=== PATIENT | male | born 1965 | race Caucasian/White ===

== ENCOUNTER 2023-05-27 07:39 | Day surgery (SDC) | payer OTHER ==
[2023-05-27 08:12] LABS: BASO % 1.2 % (0-2.0); EOS % 6.9 % (0-4.5); HEMATOCRIT 30.8 % (35.4-49); LYMPH % 22.7 % (8-40); MCH 23.8 pg (25.7-33.7); MCHC 32.6 g/dl (32.0-35.9); MEAN PLT VOLUME 7.8 fl (7.5-11.1); MONO % 10.2 % (3.8-10.2); PLATELET COUNT 449 10^3/uL (134-434); RBC 4.22 M/mm3 (4.00-5.60); RDW 16.6 % (11.9-15.9); WHITE BLOOD COUNT 7.1 K/mm3 (4.0-10.0)
[2023-05-27 08:15] LABS: POTASSIUM 3.9 mmol/L (3.5-5.1)
[2023-05-27 08:16] LABS: CALCIUM 8.3 mg/dL (8.5-10.1)
[2023-05-27 08:17] LABS: BLOOD UREA NITROGEN 14.6 mg/dL (7-18)
[2023-05-27 08:18] LABS: ALBUMIN 3.2 g/dl (3.4-5.0)
[2023-05-27 08:20] LABS: BILIRUBIN,DIRECT 0.1 mg/dL (0.0-0.2); CREATININE 0.8 mg/dL (0.55-1.3)
[2023-05-27 08:23] LABS: BILIRUBIN,TOTAL 0.3 mg/dL (0.2-1); TOT PROT 6.6 g/dl (6.4-8.2)
[2023-05-27] MEDS ORDERED: SODIUM CHLORIDE 250 ML IV ONE (09:00)
[2023-05-27] MEDS ORDERED: PALONOSETRON HCL 0.25 MG/5 ML VIAL IVPUSH ONE (09:30)
[2023-05-27] MEDS ORDERED: DEXAMETHASONE SODIUM PHOSPHATE 10 MG in SODIUM CHLORIDE 50 ML IVPB ONE (09:30)
[2023-05-27] MEDS ORDERED: LEUCOVORIN CALCIUM IVPB ONE (10:00)
[2023-05-27] MEDS ORDERED: WATER IVPB ONE (10:00)
[2023-05-27] MEDS ORDERED: DEXTROSE 5% IVPB ONE (10:00)
[2023-05-27] MEDS ORDERED: FLUOROURACIL 1,000 MG/20 ML VIAL IVPUSH ONE (12:00)
[2023-05-27] MEDS ORDERED: FLUOROURACIL 3,500 MG in SODIUM CHLORIDE 22 ML CP ONE (12:15)
[2023-05-27 15:09] VITALS: RESP 20
[2023-05-27] MEDS ORDERED: PORTA CATH FLUSH 10 ML IVPUSH PRN (15:58)
[2023-05-27 15:59] VITALS: BP 116/71; PULSE 86; TEMP 98.5
== END 2023-05-27 13:30 | disposition home or self-care (01) ==
LOC: JONCCHEMO 07:39 → J7W 07:40 → JONCCHEMO 13:30
PROVIDERS: ATTEND Internal Medicine Hematology & Oncology
DX: Z51.11 Encounter for antineoplastic chemotherapy (principal); C15.5 Malignant neoplasm of lower third of esophagus
CPT/HCPCS: 36415; 80048; 80076; 85025; 96367; 96375; 96411; 96413; G0498; J2469; J9263

== ENCOUNTER 2023-05-29 10:35 | Day surgery (SDC) | payer OTHER ==
[2023-05-29 15:54] VITALS: BP 104/73; PULSE 94; RESP 18; TEMP 97.6
[2023-05-29] MEDS ORDERED: PORTA CATH FLUSH 10 ML IVPUSH PRN (15:54)
== END 2023-05-29 11:10 | disposition home or self-care (01) ==
LOC: J7W 10:35 → JONCCHEMO 10:35
PROVIDERS: ATTEND Internal Medicine Hematology & Oncology
DX: Z53.8 Procedure and treatment not carried out for other reasons (principal)

== ENCOUNTER 2023-06-10 07:54 | Day surgery (SDC) | payer OTHER ==
[2023-06-10 08:19] LABS: HEMATOCRIT 27.9 % (35.4-49); HEMOGLOBIN 9.2 GM/dL (11.7-16.9); MCH 23.9 pg (25.7-33.7); MCHC 32.9 g/dl (32.0-35.9); MEAN CELL VOLUME 72.6 fl (80-96); MEAN PLT VOLUME 7.7 fl (7.5-11.1); PLATELET COUNT 305 10^3/uL (134-434); RBC 3.85 M/mm3 (4.00-5.60); RDW 16.9 % (11.9-15.9); WHITE BLOOD COUNT 4.1 K/mm3 (4.0-10.0)
[2023-06-10] MEDS ORDERED: SODIUM CHLORIDE 250 ML IV ONE (09:00)
[2023-06-10 09:05] LABS: POTASSIUM 3.3 mmol/L (3.5-5.1)
[2023-06-10 09:07] LABS: CALCIUM 7.8 mg/dL (8.5-10.1)
[2023-06-10 09:08] LABS: ALBUMIN 2.8 g/dl (3.4-5.0); BLOOD UREA NITROGEN 11.2 mg/dL (7-18)
[2023-06-10 09:10] LABS: ANISOCYTOSIS 1+
[2023-06-10 09:11] LABS: BILIRUBIN,DIRECT 0.1 mg/dL (0.0-0.2); CREATININE 0.7 mg/dL (0.55-1.3)
[2023-06-10 09:12] LABS: BILIRUBIN,TOTAL 0.5 mg/dL (0.2-1); TOT PROT 5.9 g/dl (6.4-8.2)
[2023-06-10] MEDS ORDERED: PALONOSETRON HCL 0.25 MG/5 ML VIAL IVPUSH ONE (09:30)
[2023-06-10] MEDS ORDERED: DEXAMETHASONE SODIUM PHOSPHATE 10 MG in SODIUM CHLORIDE 50 ML IVPB ONE (09:30)
[2023-06-10] MEDS ORDERED: LEUCOVORIN IVPB ONE (10:00)
[2023-06-10] MEDS ORDERED: WATER IVPB ONE (10:00)
[2023-06-10] MEDS ORDERED: POTASSIUM CHLORIDE TABS 20 MEQ TABLET.ER (FP) PO ONE (10:00)
[2023-06-10] MEDS ORDERED: DEXTROSE 5% IVPB ONE (10:00)
[2023-06-10] MEDS ORDERED: FLUOROURACIL 1,000 MG/20 ML VIAL IVPUSH ONE (12:00)
[2023-06-10] MEDS ORDERED: FLUOROURACIL 3,500 MG in SODIUM CHLORIDE 22 ML CP ONE (12:15)
[2023-06-10 15:35] VITALS: BP 91/67; PULSE 89; RESP 18; TEMP 97.3
== END 2023-06-10 13:45 | disposition home or self-care (01) ==
LOC: JONCCHEMO 07:54 → J7W 07:55 → JONCCHEMO 13:45
PROVIDERS: ATTEND Internal Medicine Hematology & Oncology
DX: Z51.11 Encounter for antineoplastic chemotherapy (principal); C15.8 Malignant neoplasm of overlapping sites of esophagus
CPT/HCPCS: 36415; 80048; 80076; 85025; 96366; 96367; 96375; 96411; 96413; 96415; G0498; J2469; J9263

== ENCOUNTER 2023-06-12 11:40 | Day surgery (SDC) | payer OTHER ==
[2023-06-12 17:15] VITALS: BP 109/77; PULSE 87; RESP 20; TEMP 97.7
[2023-06-12] MEDS ORDERED: PORTA CATH FLUSH 10 ML IVPUSH PRN (17:15)
== END 2023-06-12 11:55 | disposition home or self-care (01) ==
LOC: JONCCHEMO 11:40 → J7W 11:41 → JONCCHEMO 11:55
PROVIDERS: ATTEND Internal Medicine Hematology & Oncology
DX: Z53.8 Procedure and treatment not carried out for other reasons (principal)

== ENCOUNTER 2023-07-01 08:01 | Day surgery (SDC) | payer OTHER ==
[~2023-07-01 08:01] MED LIST: DEXAMETHASONE SODIUM PHOSPHATE 10 MG in SODIUM CHLORIDE 50 ML IVPB ONE; DEXTROSE 5% IVPB ONE; FLUOROURACIL 1,000 MG/20 ML VIAL IVPUSH ONE; FLUOROURACIL 3,500 MG in SODIUM CHLORIDE 22 ML CP ONE; LEUCOVORIN CALCIUM IVPB ONE; PALONOSETRON HCL 0.25 MG/5 ML VIAL IVPUSH ONE; SODIUM CHLORIDE 250 ML IV ONE; WATER IVPB ONE
[2023-07-01 08:18] LABS: BASO % 1.1 % (0-2.0); EOS % 4.3 % (0-4.5); HEMATOCRIT 29.6 % (35.4-49); HEMOGLOBIN 9.2 GM/dL (11.7-16.9); MCHC 31.2 g/dl (32.0-35.9); MEAN CELL VOLUME 73.9 fl (80-96); MEAN PLT VOLUME 7.7 fl (7.5-11.1); NEUT % 64.6 % (42.8-82.8); PLATELET COUNT 392 10^3/uL (134-434)
[2023-07-01 08:46] LABS: POTASSIUM 3.5 mmol/L (3.5-5.1)
[2023-07-01 08:48] LABS: ALBUMIN 2.8 g/dl (3.4-5.0); BLOOD UREA NITROGEN 18.6 mg/dL (7-18); CALCIUM 8.3 mg/dL (8.5-10.1)
[2023-07-01 08:51] LABS: BILIRUBIN,DIRECT 0.1 mg/dL (0.0-0.2); CREATININE 0.7 mg/dL (0.55-1.3)
[2023-07-01 08:53] LABS: BILIRUBIN,TOTAL 0.3 mg/dL (0.2-1)
[2023-07-01] MEDS ORDERED: SODIUM CHLORIDE 250 ML IV ONE (09:00)
[2023-07-01 09:26] LABS: ANISOCYTOSIS 3+; MACROCYTOSIS 0; OVALOCYTE 2+
[2023-07-01] MEDS ORDERED: DEXAMETHASONE SODIUM PHOSPHATE 10 MG in SODIUM CHLORIDE 50 ML IVPB ONE (09:30)
[2023-07-01] MEDS ORDERED: PALONOSETRON HCL 0.25 MG/5 ML VIAL IVPUSH ONE (09:30)
[2023-07-01] MEDS ORDERED: DEXTROSE 5% IVPB ONE (10:00)
[2023-07-01] MEDS ORDERED: LEUCOVORIN IVPB ONE (10:00)
[2023-07-01] MEDS ORDERED: WATER IVPB ONE (10:00)
[2023-07-01] MEDS ORDERED: FLUOROURACIL 1,000 MG/20 ML VIAL IVPUSH ONE (12:00)
[2023-07-01] MEDS ORDERED: FLUOROURACIL 3,500 MG in SODIUM CHLORIDE 22 ML CP ONE (12:15)
[2023-07-01 15:05] VITALS: BP 114/79; PULSE 68; RESP 20; TEMP 97.4
== END 2023-07-01 13:00 | disposition home or self-care (01) ==
LOC: JONCCHEMO 08:01 → J7W 08:02 → JONCCHEMO 13:00
PROVIDERS: ATTEND Internal Medicine Hematology & Oncology
DX: Z51.11 Encounter for antineoplastic chemotherapy (principal); C15.8 Malignant neoplasm of overlapping sites of esophagus
CPT/HCPCS: 36415; 80048; 80076; 85025; 96366; 96367; 96375; 96411; 96413; 96415; G0498; J2469; J9263

== ENCOUNTER 2023-07-03 11:49 | Day surgery (SDC) | payer OTHER ==
[2023-07-03] MEDS ORDERED: PORTA CATH FLUSH 10 ML IVPUSH PRN (11:56)
[2023-07-03 13:50] VITALS: BP 110/73; PULSE 91; RESP 18; TEMP 98
== END 2023-07-03 12:00 | disposition home or self-care (01) ==
LOC: J7W 11:49 → JONCCHEMO 11:49
PROVIDERS: ATTEND Internal Medicine Hematology & Oncology
DX: Z53.8 Procedure and treatment not carried out for other reasons (principal)

== ENCOUNTER 2023-07-15 07:46 | Day surgery (SDC) | payer OTHER ==
[2023-07-15 08:22] LABS: HEMOGLOBIN 9.6 GM/dL (11.7-16.9); MCH 23.9 pg (25.7-33.7); MCHC 32.1 g/dl (32.0-35.9); MEAN CELL VOLUME 74.4 fl (80-96); MEAN PLT VOLUME 7.6 fl (7.5-11.1); PLATELET COUNT 261 10^3/uL (134-434); RBC 4.04 M/mm3 (4.00-5.60); RDW 20.9 % (11.9-15.9); WHITE BLOOD COUNT 3.8 K/mm3 (4.0-10.0)
[2023-07-15] MEDS ORDERED: SODIUM CHLORIDE 250 ML IV ONE (08:30)
[2023-07-15 08:56] LABS: ALBUMIN 3.1 g/dl (3.4-5.0); BILIRUBIN,DIRECT 0.1 mg/dL (0.0-0.2); BILIRUBIN,TOTAL 0.4 mg/dL (0.2-1); BLOOD UREA NITROGEN 13.4 mg/dL (7-18); CALCIUM 8.8 mg/dL (8.5-10.1); CREATININE 0.7 mg/dL (0.55-1.3); POTASSIUM 3.5 mmol/L (3.5-5.1)
[2023-07-15] MEDS ORDERED: DEXAMETHASONE SODIUM PHOSPHATE 10 MG in SODIUM CHLORIDE 50 ML IVPB ONE (10:00)
[2023-07-15] MEDS ORDERED: PALONOSETRON HCL 0.25 MG/5 ML VIAL IVPUSH ONE (10:00)
[2023-07-15 10:27] LABS: ANISOCYTOSIS 2+; MACROCYTOSIS 0; OVALOCYTE 2+; TEAR DROP CELLS 2+
[2023-07-15] MEDS ORDERED: LEUCOVORIN IVPB ONE (10:30)
[2023-07-15] MEDS ORDERED: WATER IVPB ONE (10:30)
[2023-07-15] MEDS ORDERED: DEXTROSE 5% IVPB ONE (10:30)
[2023-07-15] MEDS ORDERED: FLUOROURACIL 1,000 MG/20 ML VIAL IVPUSH ONE (12:30)
[2023-07-15] MEDS ORDERED: FLUOROURACIL 3,500 MG in SODIUM CHLORIDE 22 ML CP ONE (12:30)
[2023-07-15 14:04] VITALS: BP 105/81; PULSE 78; RESP 18; TEMP 97.8
[2023-07-15] MEDS ORDERED: PORTA CATH FLUSH 10 ML IVPUSH PRN (14:04)
== END 2023-07-15 13:57 | disposition home or self-care (01) ==
LOC: JONCCHEMO 07:46 → J7W 07:47 → JONCCHEMO 13:57
PROVIDERS: ATTEND Internal Medicine Hematology & Oncology
DX: Z51.11 Encounter for antineoplastic chemotherapy (principal); C15.8 Malignant neoplasm of overlapping sites of esophagus
CPT/HCPCS: 36415; 80048; 80076; 85025; 96366; 96367; 96375; 96411; 96413; 96415; 96417; G0498; J2469; J9263

== ENCOUNTER 2023-07-17 11:46 | Day surgery (SDC) | payer OTHER ==
[2023-07-17 17:43] VITALS: BP 107/66; PULSE 81; RESP 18; TEMP 98.1
[2023-07-17] MEDS ORDERED: PORTA CATH FLUSH 10 ML IVPUSH PRN (17:44)
== END 2023-07-17 13:05 | disposition home or self-care (01) ==
LOC: JONCCHEMO 11:46 → J7W 11:47 → JONCCHEMO 13:05
PROVIDERS: ATTEND Internal Medicine Hematology & Oncology
DX: Z53.8 Procedure and treatment not carried out for other reasons (principal)

== ENCOUNTER 2023-07-30 07:53 | Day surgery (SDC) | payer OTHER ==
[2023-07-30 08:06] LABS: HEMATOCRIT 34.9 % (35.4-49); MCH 24.6 pg (25.7-33.7); MCHC 31.6 g/dl (32.0-35.9); MEAN CELL VOLUME 77.9 fl (80-96); MEAN PLT VOLUME 7.3 fl (7.5-11.1); PLATELET COUNT 265 10^3/uL (134-434); RBC 4.47 M/mm3 (4.00-5.60); RDW 25.5 % (11.9-15.9); WHITE BLOOD COUNT 3.2 K/mm3 (4.0-10.0)
[2023-07-30 08:23] LABS: POTASSIUM 3.4 mmol/L (3.5-5.1)
[2023-07-30 08:26] LABS: CALCIUM 8.7 mg/dL (8.5-10.1)
[2023-07-30 08:27] LABS: ALBUMIN 3.1 g/dl (3.4-5.0)
[2023-07-30 08:29] LABS: BILIRUBIN,DIRECT 0.1 mg/dL (0.0-0.2); CREATININE 0.9 mg/dL (0.55-1.3)
[2023-07-30 08:30] LABS: BILIRUBIN,TOTAL 0.4 mg/dL (0.2-1); TOT PROT 6.2 g/dl (6.4-8.2)
[2023-07-30 08:43] LABS: ANISOCYTOSIS 3+; MACROCYTOSIS 0
[2023-07-30] MEDS ORDERED: SODIUM CHLORIDE 250 ML IV ONE (09:00)
[2023-07-30] MEDS ORDERED: DEXAMETHASONE SODIUM PHOSPHATE 10 MG in SODIUM CHLORIDE 50 ML IVPB ONE (09:30)
[2023-07-30] MEDS ORDERED: PALONOSETRON HCL 0.25 MG/5 ML VIAL IVPUSH ONE (09:30)
[2023-07-30 09:34] VITALS: RESP 18; TEMP 97.7
[2023-07-30] MEDS ORDERED: PORTA CATH FLUSH 10 ML IVPUSH PRN (09:35)
[2023-07-30 09:36] VITALS: BP 121/81; PULSE 84
[2023-07-30] MEDS ORDERED: WATER IVPB ONE (10:00)
[2023-07-30] MEDS ORDERED: DEXTROSE 5% IVPB ONE (10:00)
[2023-07-30] MEDS ORDERED: LEUCOVORIN IVPB ONE (10:00)
[2023-07-30] MEDS ORDERED: FLUOROURACIL 1,000 MG/20 ML VIAL IVPUSH ONE (12:00)
[2023-07-30] MEDS ORDERED: FLUOROURACIL 3,500 MG in SODIUM CHLORIDE 22 ML CP ONE (12:15)
== END 2023-07-30 09:30 | disposition home or self-care (01) ==
LOC: JONCCHEMO 07:53 → J7W 07:55 → JONCCHEMO 09:30
PROVIDERS: ATTEND Internal Medicine Hematology & Oncology
PROC: 3E0437Z Introduction of Electrolytic and Water Balance Substance into Central Vein, Percutaneous Approach (ICD-10-PCS; principal; 2023-07-30)
DX: Z51.11 Encounter for antineoplastic chemotherapy (principal); C15.8 Malignant neoplasm of overlapping sites of esophagus; Z53.8 Procedure and treatment not carried out for other reasons; D70.9 Neutropenia, unspecified
CPT/HCPCS: 36415; 80048; 80076; 85025; 96360

== ENCOUNTER 2023-08-06 07:40 | Day surgery (SDC) | payer OTHER ==
[2023-08-06 08:59] LABS: HEMATOCRIT 37.4 % (35.4-49); HEMOGLOBIN 11.8 GM/dL (11.7-16.9); MCHC 31.4 g/dl (32.0-35.9); MEAN CELL VOLUME 79.6 fl (80-96); MEAN PLT VOLUME 8.3 fl (7.5-11.1); PLATELET COUNT 305 10^3/uL (134-434); WHITE BLOOD COUNT 8.7 K/mm3 (4.0-10.0)
[2023-08-06] MEDS ORDERED: SODIUM CHLORIDE 250 ML IV ONE (09:00)
[2023-08-06] MEDS ORDERED: PALONOSETRON HCL 0.25 MG/5 ML VIAL IVPUSH ONE (09:30)
[2023-08-06] MEDS ORDERED: DEXAMETHASONE SODIUM PHOSPHATE 10 MG in SODIUM CHLORIDE 50 ML IVPB ONE (09:30)
[2023-08-06 09:49] LABS: POTASSIUM 4.1 mmol/L (3.5-5.1)
[2023-08-06 09:51] LABS: ALBUMIN 3.2 g/dl (3.4-5.0); BLOOD UREA NITROGEN 11.5 mg/dL (7-18); CALCIUM 9.4 mg/dL (8.5-10.1)
[2023-08-06 09:54] LABS: BILIRUBIN,DIRECT 0.1 mg/dL (0.0-0.2); CREATININE 0.8 mg/dL (0.55-1.3)
[2023-08-06 09:56] LABS: BILIRUBIN,TOTAL 0.4 mg/dL (0.2-1); TOT PROT 6.4 g/dl (6.4-8.2)
[2023-08-06] MEDS ORDERED: WATER IVPB ONE (10:00)
[2023-08-06] MEDS ORDERED: DEXTROSE 5% IVPB ONE (10:00)
[2023-08-06] MEDS ORDERED: LEUCOVORIN IVPB ONE (10:00)
[2023-08-06 10:16] LABS: ANISOCYTOSIS 2+; MACROCYTOSIS 0
[2023-08-06] MEDS ORDERED: FLUOROURACIL 3,500 MG in SODIUM CHLORIDE 22 ML CP ONE (12:00)
[2023-08-06] MEDS ORDERED: FLUOROURACIL 1,000 MG/20 ML VIAL IVPUSH ONE (12:00)
[2023-08-06 16:00] VITALS: BP 121/88; PULSE 78; RESP 18; TEMP 97.8
== END 2023-08-06 14:45 | disposition home or self-care (01) ==
LOC: JONCCHEMO 07:40 → J7W 07:43 → JONCCHEMO 14:45
PROVIDERS: ATTEND Internal Medicine Hematology & Oncology
DX: Z51.11 Encounter for antineoplastic chemotherapy (principal); C15.8 Malignant neoplasm of overlapping sites of esophagus
CPT/HCPCS: 36415; 80048; 80076; 85025; 96366; 96367; 96375; 96411; 96413; 96415; G0498; J2469; J9263

== ENCOUNTER 2023-08-08 11:10 | Day surgery (SDC) | payer OTHER ==
[~2023-08-08 11:10] MED LIST changes: -DEXAMETHASONE SODIUM PHOSPHATE 10 MG in SODIUM CHLORIDE 50 ML IVPB ONE; -DEXTROSE 5% IVPB ONE; -FLUOROURACIL 1,000 MG/20 ML VIAL IVPUSH ONE; -FLUOROURACIL 3,500 MG in SODIUM CHLORIDE 22 ML CP ONE; -LEUCOVORIN CALCIUM IVPB ONE; -PALONOSETRON HCL 0.25 MG/5 ML VIAL IVPUSH ONE; +PEGFILGRASTIM-CBQV (UDENYCA) 6 MG/0.6 ML SYRINGE SQ ONE; -SODIUM CHLORIDE 250 ML IV ONE; -WATER IVPB ONE
[2023-08-08 13:02] VITALS: RESP 18; TEMP 98.7
[2023-08-08 13:12] VITALS: BP 123/84; PULSE 80
[2023-08-08] MEDS ORDERED: PORTA CATH FLUSH 10 ML IVPUSH PRN (13:12)
== END 2023-08-08 13:30 | disposition home or self-care (01) ==
LOC: J7W 11:10 → JONCCHEMO 11:10
PROVIDERS: ATTEND Internal Medicine Hematology & Oncology
DX: Z53.8 Procedure and treatment not carried out for other reasons (principal)

== ENCOUNTER 2023-08-09 11:07 | Day surgery (SDC) | payer OTHER ==
[2023-08-09] MEDS: PEGFILGRASTIM-CBQV (UDENYCA) 6 MG/0.6 ML SYRINGE SQ ONE (11:23)
[2023-08-09 15:52] VITALS: BP 126/79; PULSE 89; RESP 18; TEMP 97.4
== END 2023-08-09 12:00 | disposition home or self-care (01) ==
LOC: JONCCHEMO 11:07 → J7W 11:08 → JONCCHEMO 12:00
PROVIDERS: ATTEND Internal Medicine Hematology & Oncology
PROC: 3E013GC Introduction of Other Therapeutic Substance into Subcutaneous Tissue, Percutaneous Approach (ICD-10-PCS; principal; 2023-08-09)
DX: C15.8 Malignant neoplasm of overlapping sites of esophagus (principal); Z76.89 Persons encountering health services in other specified circumstances
CPT/HCPCS: 96372; Q5111

== ENCOUNTER 2023-08-20 07:43 | Day surgery (SDC) | payer OTHER ==
[2023-08-20 08:31] LABS: HEMATOCRIT 36.5 % (35.4-49); HEMOGLOBIN 11.8 GM/dL (11.7-16.9); MCH 26.2 pg (25.7-33.7); MCHC 32.2 g/dl (32.0-35.9); MEAN CELL VOLUME 81.4 fl (80-96); MEAN PLT VOLUME 8.4 fl (7.5-11.1); PLATELET COUNT 179 10^3/uL (134-434); RBC 4.49 M/mm3 (4.00-5.60); RDW 25.7 % (11.9-15.9); WHITE BLOOD COUNT 9.6 K/mm3 (4.0-10.0)
[2023-08-20 08:42] LABS: POTASSIUM 4.1 mmol/L (3.5-5.1)
[2023-08-20 08:46] LABS: ALBUMIN 3.2 g/dl (3.4-5.0); BLOOD UREA NITROGEN 14.9 mg/dL (7-18)
[2023-08-20 08:48] LABS: BILIRUBIN,DIRECT 0.1 mg/dL (0.0-0.2); CREATININE 0.8 mg/dL (0.55-1.3)
[2023-08-20 08:50] LABS: BILIRUBIN,TOTAL 0.3 mg/dL (0.2-1); TOT PROT 6.5 g/dl (6.4-8.2)
[2023-08-20] MEDS ORDERED: SODIUM CHLORIDE 250 ML IV ONE (09:00)
[2023-08-20 09:29] LABS: ANISOCYTOSIS 2+; MACROCYTOSIS 0
[2023-08-20] MEDS ORDERED: PALONOSETRON HCL 0.25 MG/5 ML VIAL IVPUSH ONE (09:30)
[2023-08-20] MEDS ORDERED: DEXAMETHASONE SODIUM PHOSPHATE 10 MG in SODIUM CHLORIDE 50 ML IVPB ONE (09:30)
[2023-08-20] MEDS ORDERED: WATER IVPB ONE (10:00)
[2023-08-20] MEDS ORDERED: LEUCOVORIN IVPB ONE (10:00)
[2023-08-20] MEDS ORDERED: DEXTROSE 5% IVPB ONE (10:00)
[2023-08-20] MEDS ORDERED: FLUOROURACIL 1,000 MG/20 ML VIAL IVPUSH ONE (12:00)
[2023-08-20] MEDS ORDERED: FLUOROURACIL 3,500 MG in SODIUM CHLORIDE 22 ML CP ONE (12:15)
[2023-08-20 16:02] VITALS: BP 125/84; PULSE 79; RESP 20; TEMP 97.6
[2023-08-20] MEDS ORDERED: PORTA CATH FLUSH 10 ML IVPUSH PRN (16:02)
== END 2023-08-20 14:30 | disposition home or self-care (01) ==
LOC: JONCCHEMO 07:43 → J7W 07:44 → JONCCHEMO 14:30
PROVIDERS: ATTEND Internal Medicine Hematology & Oncology
DX: Z51.11 Encounter for antineoplastic chemotherapy (principal); C15.8 Malignant neoplasm of overlapping sites of esophagus
CPT/HCPCS: 36415; 80048; 80076; 85025; 96366; 96367; 96375; 96409; 96411; 96413; 96415; 96417; G0498; J2469; J9263

== ENCOUNTER 2023-08-22 11:45 | Day surgery (SDC) | payer OTHER ==
[2023-08-22] MEDS ORDERED: PORTA CATH FLUSH 10 ML IVPUSH PRN (19:22)
[2023-08-22 19:23] VITALS: BP 116/81; PULSE 85; RESP 20; TEMP 97.4
== END 2023-08-22 13:00 | disposition home or self-care (01) ==
LOC: JONCCHEMO 11:45 → J7W 12:13 → JONCCHEMO 13:00
PROVIDERS: ATTEND Internal Medicine Hematology & Oncology
DX: Z53.8 Procedure and treatment not carried out for other reasons (principal)

== ENCOUNTER 2023-08-23 12:30 | Day surgery (SDC) | payer OTHER ==
[2023-08-23 15:13] VITALS: BP 117/80; PULSE 80; RESP 20; TEMP 97.8
== END 2023-08-23 14:20 | disposition home or self-care (01) ==
LOC: J7W 12:30 → JONCCHEMO 12:30
PROVIDERS: ATTEND Internal Medicine Hematology & Oncology
PROC: 3E013GC Introduction of Other Therapeutic Substance into Subcutaneous Tissue, Percutaneous Approach (ICD-10-PCS; principal; 2023-08-23)
DX: Z51.11 Encounter for antineoplastic chemotherapy (principal); C15.8 Malignant neoplasm of overlapping sites of esophagus
CPT/HCPCS: 96372; Q5111

== ENCOUNTER 2023-09-03 07:50 | Day surgery (SDC) | payer OTHER ==
[~2023-09-03 07:50] MED LIST changes: -PEGFILGRASTIM-CBQV (UDENYCA) 6 MG/0.6 ML SYRINGE SQ ONE; +PORTA CATH FLUSH 10 ML IVPUSH PRN
[2023-09-03 08:14] LABS: MCH 26.7 pg (25.7-33.7); MCHC 32.5 g/dl (32.0-35.9); MEAN CELL VOLUME 82.1 fl (80-96); PLATELET COUNT 183 10^3/uL (134-434); RDW 24.4 % (11.9-15.9); WHITE BLOOD COUNT 12.4 K/mm3 (4.0-10.0)
[2023-09-03 08:28] LABS: POTASSIUM 3.7 mmol/L (3.5-5.1)
[2023-09-03 08:30] LABS: BLOOD UREA NITROGEN 15.4 mg/dL (7-18); CALCIUM 8.4 mg/dL (8.5-10.1)
[2023-09-03 08:31] LABS: ALBUMIN 3.4 g/dl (3.4-5.0)
[2023-09-03 08:33] LABS: BILIRUBIN,DIRECT 0.1 mg/dL (0.0-0.2); CREATININE 0.8 mg/dL (0.55-1.3)
[2023-09-03 08:35] LABS: TOT PROT 6.5 g/dl (6.4-8.2)
[2023-09-03] MEDS ORDERED: SODIUM CHLORIDE 250 ML IV ONE (09:30)
[2023-09-03] MEDS ORDERED: PALONOSETRON HCL 0.25 MG/5 ML VIAL IVPUSH ONE (10:00)
[2023-09-03] MEDS ORDERED: DEXAMETHASONE SODIUM PHOSPHATE 10 MG in SODIUM CHLORIDE 50 ML IVPB ONE (10:00)
[2023-09-03 10:14] LABS: ANISOCYTOSIS 2+; MACROCYTOSIS 0
[2023-09-03] MEDS ORDERED: LEUCOVORIN IVPB ONE (10:30)
[2023-09-03] MEDS ORDERED: DEXTROSE 5% IVPB ONE (10:30)
[2023-09-03] MEDS ORDERED: WATER IVPB ONE (10:30)
[2023-09-03] MEDS ORDERED: FLUOROURACIL 1,000 MG/20 ML VIAL IVPUSH ONE (12:30)
[2023-09-03] MEDS ORDERED: FLUOROURACIL 3,500 MG in SODIUM CHLORIDE 22 ML CP ONE (12:45)
[2023-09-03 17:00] VITALS: RESP 18; TEMP 97.5
[2023-09-03 17:18] VITALS: BP 137/90; PULSE 82
[2023-09-03] MEDS ORDERED: PORTA CATH FLUSH 10 ML IVPUSH PRN (17:18)
== END 2023-09-03 14:00 | disposition home or self-care (01) ==
LOC: JONCCHEMO 07:50 → J7W 07:51 → JONCCHEMO 14:00
PROVIDERS: ATTEND Internal Medicine Hematology & Oncology
DX: Z51.11 Encounter for antineoplastic chemotherapy (principal); C15.8 Malignant neoplasm of overlapping sites of esophagus
CPT/HCPCS: 36415; 80048; 80076; 85025; 96375; 96411; 96413; 96415; G0498; J2469; J9263

== ENCOUNTER 2023-09-05 12:01 | Day surgery (SDC) | payer OTHER ==
[2023-09-05 17:19] VITALS: RESP 18; TEMP 98.7
[2023-09-05 17:22] VITALS: BP 120/74; PULSE 86
[2023-09-05] MEDS ORDERED: PORTA CATH FLUSH 10 ML IVPUSH PRN (17:22)
== END 2023-09-05 13:35 | disposition home or self-care (01) ==
LOC: J7W 12:01 → JONCCHEMO 12:01
PROVIDERS: ATTEND Internal Medicine Hematology & Oncology
DX: Z53.8 Procedure and treatment not carried out for other reasons (principal)

== ENCOUNTER 2023-09-06 13:50 | Day surgery (SDC) | payer OTHER ==
[2023-09-06] MEDS: PEGFILGRASTIM-CBQV (UDENYCA) 6 MG/0.6 ML SYRINGE SQ ONE (13:43)
[2023-09-06 15:19] VITALS: BP 133/93; PULSE 81; RESP 18; TEMP 97.9
== END 2023-09-06 13:55 | disposition home or self-care (01) ==
LOC: JONCCHEMO 13:50
PROVIDERS: ATTEND Internal Medicine Hematology & Oncology
PROC: 3E013GC Introduction of Other Therapeutic Substance into Subcutaneous Tissue, Percutaneous Approach (ICD-10-PCS; principal; 2023-09-06)
DX: C15.8 Malignant neoplasm of overlapping sites of esophagus (principal); Z76.89 Persons encountering health services in other specified circumstances
CPT/HCPCS: 96372; Q5111

== ENCOUNTER 2023-09-17 08:08 | Day surgery (SDC) | payer OTHER ==
[2023-09-17 08:31] LABS: BASO % 0.8 % (0-2.0); EOS % 1.7 % (0-4.5); HEMATOCRIT 37.7 % (35.4-49); HEMOGLOBIN 12.4 GM/dL (11.7-16.9); LYMPH % 13.7 % (8-40); MCHC 32.8 g/dl (32.0-35.9); MEAN CELL VOLUME 85.1 fl (80-96); MEAN PLT VOLUME 7.7 fl (7.5-11.1); MONO % 9.2 % (3.8-10.2); NEUT % 74.6 % (42.8-82.8); PLATELET COUNT 207 10^3/uL (134-434); RBC 4.43 M/mm3 (4.00-5.60); RDW 22.9 % (11.9-15.9); WHITE BLOOD COUNT 9.8 K/mm3 (4.0-10.0)
[2023-09-17] MEDS: SODIUM CHLORIDE 250 ML IV ONE (08:40)
[2023-09-17 09:47] LABS: POTASSIUM 3.9 mmol/L (3.5-5.1)
[2023-09-17 09:49] LABS: CALCIUM 8.9 mg/dL (8.5-10.1)
[2023-09-17 09:50] LABS: ALBUMIN 3.4 g/dl (3.4-5.0); BLOOD UREA NITROGEN 15.3 mg/dL (7-18)
[2023-09-17 09:52] LABS: BILIRUBIN,DIRECT 0.1 mg/dL (0.0-0.2)
[2023-09-17 09:53] LABS: CREATININE 0.8 mg/dL (0.55-1.3)
[2023-09-17 09:54] LABS: BILIRUBIN,TOTAL 0.5 mg/dL (0.2-1); TOT PROT 6.8 g/dl (6.4-8.2)
[2023-09-17] MEDS ORDERED: DEXTROSE 5% IVPB ONE (10:00)
[2023-09-17] MEDS ORDERED: WATER IVPB ONE (10:00)
[2023-09-17] MEDS ORDERED: LEUCOVORIN IVPB ONE (10:00)
[2023-09-17] MEDS: PALONOSETRON HCL 0.25 MG/5 ML VIAL IVPUSH ONE (10:42)
[2023-09-17] MEDS: DEXAMETHASONE SODIUM PHOSPHATE 10 MG in SODIUM CHLORIDE 50 ML IVPB ONE (10:48)
[2023-09-17] MEDS: WATER IVPB ONE (11:19)
[2023-09-17] MEDS: DEXTROSE 5% IVPB ONE (11:19)
[2023-09-17] MEDS: LEUCOVORIN CALCIUM IVPB ONE (11:19)
[2023-09-17 11:48] LABS: ANISOCYTOSIS 3+; MACROCYTOSIS 0
[2023-09-17] MEDS: FLUOROURACIL 1,000 MG/20 ML VIAL IVPUSH ONE (13:30)
[2023-09-17] MEDS: FLUOROURACIL 3,500 MG in SODIUM CHLORIDE 22 ML CP ONE (13:32)
[2023-09-17 15:46] VITALS: PULSE 81; RESP 18; TEMP 97.6
[2023-09-17] MEDS ORDERED: PORTA CATH FLUSH 10 ML IVPUSH PRN (15:52)
[2023-09-17 15:53] VITALS: BP 134/87
== END 2023-09-17 13:50 | disposition home or self-care (01) ==
LOC: JONCCHEMO 08:08 → J7W 08:30 → JONCCHEMO 13:50
PROVIDERS: ATTEND Internal Medicine Hematology & Oncology
DX: Z51.11 Encounter for antineoplastic chemotherapy (principal); C15.8 Malignant neoplasm of overlapping sites of esophagus
CPT/HCPCS: 36415; 80048; 80076; 85025; 96368; 96375; 96411; 96413; 96415; G0498; J2469; J9263

== ENCOUNTER 2023-09-19 12:29 | Day surgery (SDC) | payer OTHER ==
[2023-09-19] MEDS: PORTA CATH FLUSH 10 ML IVPUSH PRN (12:25)
[2023-09-19 17:27] VITALS: BP 118/83; PULSE 51; RESP 18; TEMP 98.3
== END 2023-09-19 12:30 | disposition home or self-care (01) ==
LOC: JONCCHEMO 12:29 → J7W 12:30 → JONCCHEMO 12:30
PROVIDERS: ATTEND Internal Medicine Hematology & Oncology
DX: Z53.8 Procedure and treatment not carried out for other reasons (principal)

== ENCOUNTER 2023-09-20 11:00 | Day surgery (SDC) | payer OTHER ==
[2023-09-20] MEDS: PEGFILGRASTIM-CBQV (UDENYCA) 6 MG/0.6 ML SYRINGE SQ ONE (12:00)
[2023-09-20 18:43] VITALS: BP 129/88; PULSE 96; RESP 18; TEMP 97.8
== END 2023-09-20 12:15 | disposition home or self-care (01) ==
LOC: J7W 11:00 → JONCCHEMO 11:00
PROVIDERS: ATTEND Internal Medicine Hematology & Oncology
PROC: 3E013GC Introduction of Other Therapeutic Substance into Subcutaneous Tissue, Percutaneous Approach (ICD-10-PCS; principal; 2023-09-20)
DX: C15.8 Malignant neoplasm of overlapping sites of esophagus (principal); Z76.89 Persons encountering health services in other specified circumstances
CPT/HCPCS: 96372; Q5111

== ENCOUNTER 2023-10-01 08:15 | Day surgery (SDC) | payer OTHER ==
[2023-10-01 08:39] VITALS: RESP 20; TEMP 98.2
[2023-10-01] MEDS: SODIUM CHLORIDE 250 ML IV ONE (08:45)
[2023-10-01 09:45] LABS: HEMATOCRIT 38.1 % (35.4-49); HEMOGLOBIN 12.7 GM/dL (11.7-16.9); MCH 28.9 pg (25.7-33.7); MCHC 33.4 g/dl (32.0-35.9); MEAN CELL VOLUME 86.7 fl (80-96); MEAN PLT VOLUME 8.5 fl (7.5-11.1); PLATELET COUNT 188 10^3/uL (134-434); RBC 4.39 M/mm3 (4.00-5.60); RDW 20.8 % (11.9-15.9)
[2023-10-01 10:00] LABS: POTASSIUM 3.5 mmol/L (3.5-5.1)
[2023-10-01 10:02] LABS: CALCIUM 8.4 mg/dL (8.5-10.1)
[2023-10-01 10:03] LABS: ALBUMIN 3.4 g/dl (3.4-5.0); BLOOD UREA NITROGEN 14.3 mg/dL (7-18)
[2023-10-01 10:05] LABS: BILIRUBIN,DIRECT 0.1 mg/dL (0.0-0.2)
[2023-10-01 10:06] LABS: CREATININE 0.8 mg/dL (0.55-1.3)
[2023-10-01 10:07] LABS: BILIRUBIN,TOTAL 0.3 mg/dL (0.2-1); TOT PROT 6.6 g/dl (6.4-8.2)
[2023-10-01 10:13] LABS: ANISOCYTOSIS 1+; MACROCYTOSIS 0
[2023-10-01] MEDS: DEXAMETHASONE SODIUM PHOSPHATE 10 MG in SODIUM CHLORIDE 50 ML IVPB ONE (10:36)
[2023-10-01] MEDS: PALONOSETRON HCL 0.25 MG/5 ML VIAL IVPUSH ONE (10:36)
[2023-10-01] MEDS: LEUCOVORIN CALCIUM IVPB ONE (11:23)
[2023-10-01] MEDS: DEXTROSE 5% IVPB ONE (11:23)
[2023-10-01] MEDS: WATER IVPB ONE (11:23)
[2023-10-01] MEDS: FLUOROURACIL 1,000 MG/20 ML VIAL IVPUSH ONE (13:42)
[2023-10-01] MEDS: FLUOROURACIL 3,500 MG in SODIUM CHLORIDE 22 ML CP ONE (13:42)
[2023-10-01 13:51] VITALS: BP 129/89; PULSE 83
[2023-10-01] MEDS ORDERED: PORTA CATH FLUSH 10 ML IVPUSH PRN (14:26)
== END 2023-10-01 14:00 | disposition home or self-care (01) ==
LOC: JONCCHEMO 08:15 → J7W 08:16 → JONCCHEMO 14:00
PROVIDERS: ATTEND Internal Medicine Hematology & Oncology
DX: Z51.11 Encounter for antineoplastic chemotherapy (principal); C15.8 Malignant neoplasm of overlapping sites of esophagus
CPT/HCPCS: 36415; 80048; 80076; 85025; 96375; 96413; 96415; G0498; J2469; J9263

== ENCOUNTER 2023-10-04 12:13 | Emergency (ER) | payer OTHER ==
[2023-10-04 12:20] VITALS: BP 118/83; PULSE 82; RESP 18; TEMP 98.4; BMI 20.7
== END 2023-10-04 13:50 | disposition home or self-care (01) ==
LOC: JER 12:13
DX: J02.9 Acute pharyngitis, unspecified (principal); R07.0 Pain in throat
CPT/HCPCS: 99282-25

== ENCOUNTER 2023-10-15 08:36 | Day surgery (SDC) | payer OTHER ==
[2023-10-15 09:11] LABS: HEMATOCRIT 36.1 % (35.4-49); HEMOGLOBIN 12.2 GM/dL (11.7-16.9); MCH 29.6 pg (25.7-33.7); MCHC 33.7 g/dl (32.0-35.9); MEAN CELL VOLUME 87.7 fl (80-96); PLATELET COUNT 184 10^3/uL (134-434); RBC 4.11 M/mm3 (4.00-5.60); RDW 18.4 % (11.9-15.9); WHITE BLOOD COUNT 9.1 K/mm3 (4.0-10.0)
[2023-10-15] MEDS: SODIUM CHLORIDE 250 ML IV ONE (09:15)
[2023-10-15 09:23] LABS: POTASSIUM 3.8 mmol/L (3.5-5.1)
[2023-10-15 09:25] LABS: BLOOD UREA NITROGEN 13.6 mg/dL (7-18); CALCIUM 8.7 mg/dL (8.5-10.1)
[2023-10-15 09:26] LABS: ALBUMIN 3.2 g/dl (3.4-5.0)
[2023-10-15 09:28] LABS: BILIRUBIN,DIRECT 0.1 mg/dL (0.0-0.2)
[2023-10-15 09:29] LABS: CREATININE 0.7 mg/dL (0.55-1.3)
[2023-10-15 09:30] LABS: BILIRUBIN,TOTAL 0.5 mg/dL (0.2-1)
[2023-10-15 09:31] LABS: TOT PROT 6.5 g/dl (6.4-8.2)
[2023-10-15] MEDS: PALONOSETRON HCL 0.25 MG/5 ML VIAL IVPUSH ONE (11:07)
[2023-10-15] MEDS: DEXAMETHASONE SODIUM PHOSPHATE 10 MG in SODIUM CHLORIDE 50 ML IVPB ONE (11:13)
[2023-10-15 11:31] LABS: ANISOCYTOSIS 0; MACROCYTOSIS 0
[2023-10-15] MEDS: LEUCOVORIN CALCIUM IVPB ONE (11:49)
[2023-10-15] MEDS: WATER IVPB ONE (11:49)
[2023-10-15] MEDS: DEXTROSE 5% IVPB ONE (11:49)
[2023-10-15] MEDS: FLUOROURACIL 1,000 MG/20 ML VIAL IVPUSH ONE (14:05)
[2023-10-15] MEDS: FLUOROURACIL 3,500 MG in SODIUM CHLORIDE 22 ML CP ONE (14:07)
[2023-10-15 15:52] VITALS: BP 120/86; PULSE 75; RESP 18; TEMP 97.6
[2023-10-15] MEDS ORDERED: PORTA CATH FLUSH 10 ML IVPUSH PRN (15:52)
== END 2023-10-15 14:30 | disposition home or self-care (01) ==
LOC: J7W 08:36 → JONCCHEMO 08:36
PROVIDERS: ATTEND Internal Medicine Hematology & Oncology
DX: Z51.11 Encounter for antineoplastic chemotherapy (principal); C15.8 Malignant neoplasm of overlapping sites of esophagus
CPT/HCPCS: 36415; 80048; 80076; 85025; 96367; 96411; 96413; 96415; G0498; J2469; J9263

== ENCOUNTER 2023-10-18 10:00 | Day surgery (SDC) | payer OTHER ==
[2023-10-18] MEDS: PEGFILGRASTIM-CBQV (UDENYCA) 6 MG/0.6 ML SYRINGE SQ ONE (12:08)
[2023-10-18 17:34] VITALS: BP 125/85; PULSE 84; RESP 20; TEMP 97.5
== END 2023-10-18 12:30 | disposition home or self-care (01) ==
LOC: JONCCHEMO 10:00 → J7W 10:00 → JONCCHEMO 12:30
PROVIDERS: ATTEND Internal Medicine Hematology & Oncology
PROC: 3E013GC Introduction of Other Therapeutic Substance into Subcutaneous Tissue, Percutaneous Approach (ICD-10-PCS; principal; 2023-10-18)
DX: Z76.89 Persons encountering health services in other specified circumstances (principal); C15.8 Malignant neoplasm of overlapping sites of esophagus
CPT/HCPCS: 96372; Q5111

== ENCOUNTER 2023-11-05 11:25 | Day surgery (SDC) | payer OTHER ==
[~2023-11-05 11:25] MED LIST changes: +DEXAMETHASONE SODIUM PHOSPHATE 10 MG in SODIUM CHLORIDE 50 ML IVPB ONE; +DEXTROSE 5% IVPB ONE; +FLUOROURACIL 1,000 MG/20 ML VIAL IVPUSH ONE; +FLUOROURACIL 3,500 MG in SODIUM CHLORIDE 22 ML CP ONE; +LEUCOVORIN CALCIUM IVPB ONE; +PALONOSETRON HCL 0.25 MG/5 ML VIAL IVPUSH ONE; -PORTA CATH FLUSH 10 ML IVPUSH PRN; +SODIUM CHLORIDE 250 ML IV ONE; +WATER IVPB ONE
[2023-11-05] MEDS: SODIUM CHLORIDE 250 ML IV ONE (11:48)
[2023-11-05 12:44] LABS: BASO % 1.2 % (0-2.0); EOS % 1.2 % (0-4.5); HEMATOCRIT 39.7 % (35.4-49); HEMOGLOBIN 13.2 GM/dL (11.7-16.9); LYMPH % 13.5 % (8-40); MCH 29.8 pg (25.7-33.7); MCHC 33.2 g/dl (32.0-35.9); MEAN CELL VOLUME 89.9 fl (80-96); MEAN PLT VOLUME 8.6 fl (7.5-11.1); MONO % 7.7 % (3.8-10.2); NEUT % 76.4 % (42.8-82.8); PLATELET COUNT 284 10^3/uL (134-434); POTASSIUM 3.9 mmol/L (3.5-5.1); RBC 4.41 M/mm3 (4.00-5.60); RDW 18.6 % (11.9-15.9)
[2023-11-05 12:47] LABS: BLOOD UREA NITROGEN 13.2 mg/dL (7-18); CALCIUM 9.3 mg/dL (8.5-10.1)
[2023-11-05 12:48] LABS: ALBUMIN 3.5 g/dl (3.4-5.0)
[2023-11-05 12:49] LABS: BILIRUBIN,DIRECT 0.2 mg/dL (0.0-0.2); CREATININE 0.9 mg/dL (0.55-1.3)
[2023-11-05 12:52] LABS: BILIRUBIN,TOTAL 0.7 mg/dL (0.2-1)
[2023-11-05] MEDS: DEXAMETHASONE SODIUM PHOSPHATE 10 MG in SODIUM CHLORIDE 50 ML IVPB ONE (13:36)
[2023-11-05] MEDS: PALONOSETRON HCL 0.25 MG/5 ML VIAL IVPUSH ONE (13:37)
[2023-11-05] MEDS: DEXTROSE 5% IVPB ONE (14:05)
[2023-11-05] MEDS: LEUCOVORIN CALCIUM IVPB ONE (14:05)
[2023-11-05] MEDS: WATER IVPB ONE (14:05)
[2023-11-05] MEDS: FLUOROURACIL 1,000 MG/20 ML VIAL IVPUSH ONE (16:25)
[2023-11-05] MEDS: PORTA CATH FLUSH 10 ML IVPUSH PRN (16:29)
[2023-11-05] MEDS: FLUOROURACIL 3,500 MG in SODIUM CHLORIDE 22 ML CP ONE (16:29)
[2023-11-05 17:01] VITALS: BP 125/85; PULSE 85; RESP 20; TEMP 97.9
== END 2023-11-05 16:45 | disposition home or self-care (01) ==
LOC: JONCCHEMO 11:25 → J7W 11:25 → JONCCHEMO 16:45
PROVIDERS: ATTEND Internal Medicine Hematology & Oncology
DX: Z51.11 Encounter for antineoplastic chemotherapy (principal); C15.8 Malignant neoplasm of overlapping sites of esophagus
CPT/HCPCS: 36415; 80048; 80076; 85025; 96367; 96375; 96409; G0498; J2469

== ENCOUNTER 2023-11-19 08:58 | Day surgery (SDC) | payer OTHER ==
[2023-11-19 09:40] LABS: BASO % 1.3 % (0-2.0); EOS % 3.1 % (0-4.5); HEMATOCRIT 37.5 % (35.4-49); HEMOGLOBIN 12.7 GM/dL (11.7-16.9); LYMPH % 18.4 % (8-40); MCH 30.5 pg (25.7-33.7); MCHC 33.8 g/dl (32.0-35.9); MEAN CELL VOLUME 90.1 fl (80-96); MEAN PLT VOLUME 7.8 fl (7.5-11.1); MONO % 12.2 % (3.8-10.2); PLATELET COUNT 253 10^3/uL (134-434); RBC 4.16 M/mm3 (4.00-5.60); RDW 17.1 % (11.9-15.9); WHITE BLOOD COUNT 5.9 K/mm3 (4.0-10.0)
[2023-11-19] MEDS: SODIUM CHLORIDE 250 ML IV ONE (09:40)
[2023-11-19 09:56] LABS: POTASSIUM 3.8 mmol/L (3.5-5.1)
[2023-11-19 09:59] LABS: BLOOD UREA NITROGEN 16.3 mg/dL (7-18); CALCIUM 9.3 mg/dL (8.5-10.1)
[2023-11-19 10:00] LABS: ALBUMIN 3.4 g/dl (3.4-5.0)
[2023-11-19 10:02] LABS: BILIRUBIN,DIRECT 0.1 mg/dL (0.0-0.2); CREATININE 0.7 mg/dL (0.55-1.3)
[2023-11-19 10:04] LABS: BILIRUBIN,TOTAL 0.6 mg/dL (0.2-1); TOT PROT 6.7 g/dl (6.4-8.2)
[2023-11-19] MEDS: PALONOSETRON HCL 0.25 MG/5 ML VIAL IVPUSH ONE (10:50)
[2023-11-19] MEDS: DEXAMETHASONE SODIUM PHOSPHATE 10 MG in SODIUM CHLORIDE 50 ML IVPB ONE (10:50)
[2023-11-19] MEDS: DEXTROSE 5% IVPB ONE (11:36)
[2023-11-19] MEDS: WATER IVPB ONE (11:36)
[2023-11-19] MEDS: LEUCOVORIN CALCIUM IVPB ONE (11:36)
[2023-11-19] MEDS: FLUOROURACIL 1,000 MG/20 ML VIAL IVPUSH ONE (14:04)
[2023-11-19] MEDS: FLUOROURACIL 3,500 MG in SODIUM CHLORIDE 22 ML CP ONE (14:05)
[2023-11-19 16:19] VITALS: BP 122/90; PULSE 84; RESP 20; TEMP 97.9
[2023-11-19] MEDS ORDERED: PORTA CATH FLUSH 10 ML IVPUSH PRN (16:19)
== END 2023-11-19 15:00 | disposition home or self-care (01) ==
LOC: JONCCHEMO 08:58 → J7W 09:07 → JONCCHEMO 15:00
PROVIDERS: ATTEND Internal Medicine Hematology & Oncology
DX: Z51.11 Encounter for antineoplastic chemotherapy (principal); C15.8 Malignant neoplasm of overlapping sites of esophagus
CPT/HCPCS: 36415; 80048; 80076; 85025; 96367; 96375; 96411; 96413; 96415; G0498; J2469

== ENCOUNTER 2023-12-17 11:23 | Day surgery (SDC) | payer OTHER ==
[2023-12-17 12:04] LABS: BASO % 1.1 % (0-2.0); EOS % 2.4 % (0-4.5); HEMATOCRIT 40.4 % (35.4-49); HEMOGLOBIN 13.9 GM/dL (11.7-16.9); LYMPH % 14.3 % (8-40); MCH 30.5 pg (25.7-33.7); MCHC 34.2 g/dl (32.0-35.9); MEAN CELL VOLUME 89.2 fl (80-96); MEAN PLT VOLUME 8.2 fl (7.5-11.1); MONO % 8.2 % (3.8-10.2); PLATELET COUNT 224 10^3/uL (134-434); RBC 4.53 M/mm3 (4.00-5.60); RDW 15.8 % (11.9-15.9); WHITE BLOOD COUNT 7.6 K/mm3 (4.0-10.0)
[2023-12-17 12:25] LABS: CHLORIDE 107 mmol/L (98-107); POTASSIUM 3.7 mmol/L (3.5-5.1); SODIUM 138 mmol/L (136-145)
[2023-12-17 12:27] LABS: CALCIUM 9.2 mg/dL (8.5-10.1)
[2023-12-17 12:28] LABS: ALBUMIN 3.6 g/dl (3.4-5.0); ANION GAP 6 mmol/L (4-13); CO2 25 mmol/L (21-32)
[2023-12-17 12:29] LABS: GLUCOSE,RANDOM 98 mg/dL (74-106)
[2023-12-17 12:31] LABS: BILIRUBIN,DIRECT 0.2 mg/dL (0.0-0.2); CREATININE 0.8 mg/dL (0.55-1.3); SGOT/AST 14 U/L (15-37); SGPT/ALT 24 U/L (13-61)
[2023-12-17 12:32] LABS: BILIRUBIN,TOTAL 0.9 mg/dL (0.2-1); TOT PROT 6.9 g/dl (6.4-8.2)
[2023-12-17 12:33] LABS: ALK PHOS 71 U/L (45-117)
[2023-12-17] MEDS: SODIUM CHLORIDE 250 ML IV ONE (12:40)
[2023-12-17] MEDS: DEXAMETHASONE SODIUM PHOSPHATE 10 MG in SODIUM CHLORIDE 50 ML IVPB ONE (13:19)
[2023-12-17] MEDS: PALONOSETRON HCL 0.25 MG/5 ML VIAL IVPUSH ONE (13:21)
[2023-12-17] MEDS: LEUCOVORIN CALCIUM IVPB ONE (13:38)
[2023-12-17] MEDS: DEXTROSE 5% IVPB ONE (13:38)
[2023-12-17] MEDS: WATER IVPB ONE (13:38)
[2023-12-17] MEDS: FLUOROURACIL 3,500 MG in SODIUM CHLORIDE 22 ML CP ONE (15:50)
[2023-12-17] MEDS: FLUOROURACIL 1,000 MG/20 ML VIAL IVPUSH ONE (15:50)
[2023-12-17] MEDS ORDERED: PORTA CATH FLUSH 10 ML IVPUSH PRN (16:44)
[2023-12-17 16:45] VITALS: TEMP 97
[2023-12-18 07:27] VITALS: BP 135/90; PULSE 79; RESP 18
== END 2023-12-17 15:55 | disposition home or self-care (01) ==
LOC: JONCCHEMO 11:23 → J7W 11:24 → JONCCHEMO 15:55
PROVIDERS: ATTEND Internal Medicine Hematology & Oncology
PROC: 3E04305 Introduction of Other Antineoplastic into Central Vein, Percutaneous Approach (ICD-10-PCS; principal; 2023-12-17)
PROC: 3E043GC Introduction of Other Therapeutic Substance into Central Vein, Percutaneous Approach (ICD-10-PCS; 2023-12-17)
DX: Z51.11 Encounter for antineoplastic chemotherapy (principal); C15.8 Malignant neoplasm of overlapping sites of esophagus
CPT/HCPCS: 36415; 80048; 80076; 85025; 96365; 96366; 96375; 96409; G0498; J2469

== ENCOUNTER 2023-12-19 12:15 | Day surgery (SDC) | payer OTHER ==
[2023-12-19] MEDS: PORTA CATH FLUSH 10 ML IVPUSH PRN (14:15)
[2023-12-19 16:28] VITALS: BP 108/73; PULSE 75; RESP 20; TEMP 98
== END 2023-12-19 14:15 | disposition home or self-care (01) ==
LOC: JONCCHEMO 12:15 → J7W 12:15 → JONCCHEMO 14:15
PROVIDERS: ATTEND Internal Medicine Hematology & Oncology
DX: Z53.8 Procedure and treatment not carried out for other reasons (principal)

== ENCOUNTER 2024-01-14 11:00 | Day surgery (SDC) | payer OTHER ==
[~2024-01-14 11:00] MED LIST changes: -LEUCOVORIN CALCIUM IVPB ONE; +LEUCOVORIN IVPB ONE
[2024-01-14 12:14] LABS: BASO % 0.8 % (0-2.0); EOS % 3.5 % (0-4.5); HEMOGLOBIN 14.2 GM/dL (11.7-16.9); LYMPH % 16.4 % (8-40); MCH 30.9 pg (25.7-33.7); MCHC 34.8 g/dl (32.0-35.9); MEAN CELL VOLUME 88.7 fl (80-96); MEAN PLT VOLUME 8.6 fl (7.5-11.1); MONO % 6.7 % (3.8-10.2); NEUT % 72.6 % (42.8-82.8); PLATELET COUNT 219 10^3/uL (134-434); RBC 4.61 M/mm3 (4.00-5.60); RDW 14.7 % (11.9-15.9); WHITE BLOOD COUNT 6.8 K/mm3 (4.0-10.0)
[2024-01-14 12:29] LABS: CHLORIDE 108 mmol/L (98-107); POTASSIUM 4.3 mmol/L (3.5-5.1); SODIUM 140 mmol/L (136-145)
[2024-01-14 12:31] LABS: CALCIUM 9.1 mg/dL (8.5-10.1)
[2024-01-14 12:32] LABS: ALBUMIN 3.6 g/dl (3.4-5.0); ANION GAP 5 mmol/L (4-13); BLOOD UREA NITROGEN 16.7 mg/dL (7-18); CO2 27 mmol/L (21-32); GLUCOSE,RANDOM 98 mg/dL (74-106)
[2024-01-14 12:34] LABS: BILIRUBIN,DIRECT 0.2 mg/dL (0.0-0.2)
[2024-01-14 12:35] LABS: CREATININE 0.9 mg/dL (0.55-1.3); SGOT/AST 13 U/L (15-37); SGPT/ALT 23 U/L (13-61)
[2024-01-14 12:37] LABS: TOT PROT 6.9 g/dl (6.4-8.2)
[2024-01-14 12:38] LABS: ALK PHOS 69 U/L (45-117)
[2024-01-14] MEDS: SODIUM CHLORIDE 250 ML IV ONE (13:07)
[2024-01-14] MEDS: DEXAMETHASONE SODIUM PHOSPHATE 10 MG in SODIUM CHLORIDE 50 ML IVPB ONE (13:37)
[2024-01-14] MEDS: PALONOSETRON HCL 0.25 MG/5 ML VIAL IVPUSH ONE (13:38)
[2024-01-14] MEDS: LEUCOVORIN CALCIUM IVPB ONE (14:00)
[2024-01-14] MEDS: WATER IVPB ONE (14:00)
[2024-01-14] MEDS: DEXTROSE 5% IVPB ONE (14:00)
[2024-01-14] MEDS: FLUOROURACIL 1,000 MG/20 ML VIAL IVPUSH ONE (16:14)
[2024-01-14] MEDS: PORTA CATH FLUSH 10 ML IVPUSH PRN (16:15)
[2024-01-14] MEDS: FLUOROURACIL 3,500 MG in SODIUM CHLORIDE 22 ML CP ONE (16:16)
[2024-01-14 16:30] VITALS: RESP 20; TEMP 98.1
[2024-01-14 16:50] VITALS: BP 120/88; PULSE 75
== END 2024-01-14 16:20 | disposition home or self-care (01) ==
LOC: JONCCHEMO 11:00 → J7W 11:01 → JONCCHEMO 16:20
PROVIDERS: ATTEND Internal Medicine Hematology & Oncology
PROC: 3E04305 Introduction of Other Antineoplastic into Central Vein, Percutaneous Approach (ICD-10-PCS; principal; 2024-01-14)
PROC: 3E043GC Introduction of Other Therapeutic Substance into Central Vein, Percutaneous Approach (ICD-10-PCS; 2024-01-14)
DX: Z51.11 Encounter for antineoplastic chemotherapy (principal); C15.8 Malignant neoplasm of overlapping sites of esophagus
CPT/HCPCS: 36415; 80048; 80076; 82378; 85025; 96365; 96366; 96375; 96409; G0498; J2469

== ENCOUNTER 2024-01-28 11:25 | Day surgery (SDC) | payer OTHER ==
[2024-01-28] MEDS: SODIUM CHLORIDE 250 ML IV ONE (12:05)
[2024-01-28 12:29] LABS: CHLORIDE 109 mmol/L (98-107); SODIUM 140 mmol/L (136-145)
[2024-01-28 12:31] LABS: CALCIUM 8.9 mg/dL (8.5-10.1)
[2024-01-28 12:32] LABS: BLOOD UREA NITROGEN 12.7 mg/dL (7-18); GLUCOSE,RANDOM 103 mg/dL (74-106)
[2024-01-28 12:33] LABS: ALBUMIN 3.7 g/dl (3.4-5.0); ANION GAP 7 mmol/L (4-13); CO2 24 mmol/L (21-32); EOS % 2.8 % (0-4.5); HEMATOCRIT 40.3 % (35.4-49); HEMOGLOBIN 14.1 GM/dL (11.7-16.9); LYMPH % 14.2 % (8-40); MCH 31.1 pg (25.7-33.7); MCHC 35.1 g/dl (32.0-35.9); MEAN CELL VOLUME 88.7 fl (80-96); MEAN PLT VOLUME 8.2 fl (7.5-11.1); MONO % 7.5 % (3.8-10.2); NEUT % 74.5 % (42.8-82.8); PLATELET COUNT 251 10^3/uL (134-434); RBC 4.54 M/mm3 (4.00-5.60); RDW 14.8 % (11.9-15.9); WHITE BLOOD COUNT 6.9 K/mm3 (4.0-10.0)
[2024-01-28 12:35] LABS: BILIRUBIN,DIRECT 0.2 mg/dL (0.0-0.2); SGOT/AST 14 U/L (15-37); SGPT/ALT 21 U/L (13-61)
[2024-01-28 12:36] LABS: CREATININE 0.9 mg/dL (0.55-1.3)
[2024-01-28 12:37] LABS: BILIRUBIN,TOTAL 0.8 mg/dL (0.2-1)
[2024-01-28 12:38] LABS: ALK PHOS 75 U/L (45-117)
[2024-01-28] MEDS: DEXAMETHASONE SODIUM PHOSPHATE 10 MG in SODIUM CHLORIDE 50 ML IVPB ONE (12:48)
[2024-01-28] MEDS: PALONOSETRON HCL 0.25 MG/5 ML VIAL IVPUSH ONE (12:48)
[2024-01-28] MEDS: LEUCOVORIN CALCIUM IVPB ONE (13:17)
[2024-01-28] MEDS: DEXTROSE 5% IVPB ONE (13:17)
[2024-01-28] MEDS: WATER IVPB ONE (13:17)
[2024-01-28] MEDS: PORTA CATH FLUSH 10 ML IVPUSH PRN (15:40)
[2024-01-28] MEDS: FLUOROURACIL 1,000 MG/20 ML VIAL IVPUSH ONE (15:40)
[2024-01-28] MEDS: FLUOROURACIL 3,500 MG in SODIUM CHLORIDE 22 ML CP ONE (15:42)
[2024-01-28 15:57] VITALS: RESP 18; TEMP 97.5
[2024-01-28 16:09] VITALS: BP 124/84; PULSE 80
== END 2024-01-28 16:00 | disposition home or self-care (01) ==
LOC: JONCCHEMO 11:25 → J7W 11:25 → JONCCHEMO 16:00
PROVIDERS: ATTEND Internal Medicine Hematology & Oncology
PROC: 3E04305 Introduction of Other Antineoplastic into Central Vein, Percutaneous Approach (ICD-10-PCS; principal; 2024-01-28)
PROC: 3E04305 Introduction of Other Antineoplastic into Central Vein, Percutaneous Approach (ICD-10-PCS; 2024-01-28)
PROC: 3E043GC Introduction of Other Therapeutic Substance into Central Vein, Percutaneous Approach (ICD-10-PCS; 2024-01-28)
DX: Z51.11 Encounter for antineoplastic chemotherapy (principal); C15.8 Malignant neoplasm of overlapping sites of esophagus
CPT/HCPCS: 36415; 80048; 80076; 85025; 96365; 96366; 96375; 96409; G0498; J2469

== ENCOUNTER 2024-03-10 10:03 | Day surgery (SDC) | payer OTHER ==
[2024-03-10] MEDS: SODIUM CHLORIDE 250 ML IV ONE (10:54)
[2024-03-10 11:06] LABS: EOS % 4.3 % (0-4.5); HEMATOCRIT 40.1 % (35.4-49); HEMOGLOBIN 13.9 GM/dL (11.7-16.9); LYMPH % 14.3 % (8-40); MCH 30.4 pg (25.7-33.7); MCHC 34.5 g/dl (32.0-35.9); MEAN CELL VOLUME 88.1 fl (80-96); MEAN PLT VOLUME 8.9 fl (7.5-11.1); MONO % 7.4 % (3.8-10.2); PLATELET COUNT 238 10^3/uL (134-434); RBC 4.55 M/mm3 (4.00-5.60)
[2024-03-10 11:29] LABS: CHLORIDE 107 mmol/L (98-107); POTASSIUM 3.9 mmol/L (3.5-5.1); SODIUM 139 mmol/L (136-145)
[2024-03-10 11:31] LABS: ANION GAP 9 mmol/L (4-13); BLOOD UREA NITROGEN 13.7 mg/dL (7-18); CALCIUM 8.8 mg/dL (8.5-10.1); CO2 23 mmol/L (21-32); GLUCOSE,RANDOM 92 mg/dL (74-106)
[2024-03-10 11:34] LABS: ALBUMIN 3.7 g/dl (3.4-5.0); BILIRUBIN,DIRECT 0.2 mg/dL (0.0-0.2); CREATININE 0.8 mg/dL (0.55-1.3); SGOT/AST 13 U/L (15-37); SGPT/ALT 18 U/L (13-61)
[2024-03-10 11:36] LABS: BILIRUBIN,TOTAL 0.8 mg/dL (0.2-1); TOT PROT 6.8 g/dl (6.4-8.2)
[2024-03-10 11:37] LABS: ALK PHOS 74 U/L (45-117)
[2024-03-10] MEDS: DEXAMETHASONE SODIUM PHOSPHATE 10 MG in SODIUM CHLORIDE 50 ML IVPB ONE (11:55)
[2024-03-10] MEDS: PALONOSETRON HCL 0.25 MG/5 ML VIAL IVPUSH ONE (11:56)
[2024-03-10] MEDS: LEUCOVORIN CALCIUM IVPB ONE (12:20)
[2024-03-10] MEDS: DEXTROSE 5% IVPB ONE (12:20)
[2024-03-10] MEDS: WATER IVPB ONE (12:20)
[2024-03-10] MEDS: FLUOROURACIL 1,000 MG/20 ML VIAL IVPUSH ONE (14:32)
[2024-03-10] MEDS: FLUOROURACIL 3,500 MG in SODIUM CHLORIDE 22 ML CP ONE (14:33)
[2024-03-10] MEDS ORDERED: PORTA CATH FLUSH 10 ML IVPUSH PRN (15:15)
[2024-03-10 15:40] VITALS: BP 121/76; PULSE 78; RESP 20; TEMP 97.7
== END 2024-03-10 15:25 | disposition home or self-care (01) ==
LOC: J7W 10:03 → JONCCHEMO 10:03
PROVIDERS: ATTEND Internal Medicine Hematology & Oncology
PROC: 3E04305 Introduction of Other Antineoplastic into Central Vein, Percutaneous Approach (ICD-10-PCS; principal; 2024-03-10)
PROC: 3E043GC Introduction of Other Therapeutic Substance into Central Vein, Percutaneous Approach (ICD-10-PCS; 2024-03-10)
DX: Z51.11 Encounter for antineoplastic chemotherapy (principal); C15.8 Malignant neoplasm of overlapping sites of esophagus
CPT/HCPCS: 36415; 80048; 80076; 82378; 85025; 96365; 96366; 96375; 96409; G0498; J2469

== ENCOUNTER 2024-03-24 10:42 | Day surgery (SDC) | payer OTHER ==
[~2024-03-24 10:42] MED LIST changes: -DEXAMETHASONE SODIUM PHOSPHATE 10 MG in SODIUM CHLORIDE 50 ML IVPB ONE; -FLUOROURACIL 1,000 MG/20 ML VIAL IVPUSH ONE; -FLUOROURACIL 3,500 MG in SODIUM CHLORIDE 22 ML CP ONE; +LEUCOVORIN CALCIUM IVPB ONE; -LEUCOVORIN IVPB ONE; -PALONOSETRON HCL 0.25 MG/5 ML VIAL IVPUSH ONE; -SODIUM CHLORIDE 250 ML IV ONE
[2024-03-24] MEDS: PORTA CATH FLUSH 10 ML IVPUSH PRN (11:45)
[2024-03-24 12:04] LABS: BASO % 0.8 % (0-2.0); EOS % 2.3 % (0-4.5); HEMATOCRIT 38.1 % (35.4-49); HEMOGLOBIN 13.3 GM/dL (11.7-16.9); LYMPH % 14.9 % (8-40); MCH 30.8 pg (25.7-33.7); MCHC 34.8 g/dl (32.0-35.9); MEAN CELL VOLUME 88.6 fl (80-96); MEAN PLT VOLUME 8.2 fl (7.5-11.1); MONO % 8.8 % (3.8-10.2); NEUT % 73.2 % (42.8-82.8); PLATELET COUNT 215 10^3/uL (134-434); RDW 14.9 % (11.9-15.9); WHITE BLOOD COUNT 6.1 K/mm3 (4.0-10.0)
[2024-03-24 12:22] LABS: CHLORIDE 108 mmol/L (98-107); POTASSIUM 3.4 mmol/L (3.5-5.1); SODIUM 140 mmol/L (136-145)
[2024-03-24 12:25] LABS: ALBUMIN 3.5 g/dl (3.4-5.0); ANION GAP 8 mmol/L (4-13); BLOOD UREA NITROGEN 14.4 mg/dL (7-18); CALCIUM 8.8 mg/dL (8.5-10.1); CO2 24 mmol/L (21-32); GLUCOSE,RANDOM 107 mg/dL (74-106)
[2024-03-24 12:28] LABS: BILIRUBIN,DIRECT 0.2 mg/dL (0.0-0.2); CREATININE 0.9 mg/dL (0.55-1.3); SGOT/AST 10 U/L (15-37); SGPT/ALT 15 U/L (13-61)
[2024-03-24 12:30] LABS: TOT PROT 6.2 g/dl (6.4-8.2)
[2024-03-24] MEDS: SODIUM CHLORIDE 250 ML IV ONE (12:30)
[2024-03-24 12:32] LABS: ALK PHOS 74 U/L (45-117)
[2024-03-24] MEDS: DEXAMETHASONE SODIUM PHOSPHATE 10 MG in SODIUM CHLORIDE 50 ML IVPB ONE (13:06)
[2024-03-24] MEDS: PALONOSETRON HCL 0.25 MG/5 ML VIAL IVPUSH ONE (13:07)
[2024-03-24] MEDS: WATER IVPB ONE (13:34)
[2024-03-24] MEDS: LEUCOVORIN CALCIUM IVPB ONE (13:34)
[2024-03-24] MEDS: DEXTROSE 5% IVPB ONE (13:34)
[2024-03-24] MEDS: FLUOROURACIL 1,000 MG/20 ML VIAL IVPUSH ONE (15:58)
[2024-03-24] MEDS: FLUOROURACIL 3,500 MG in SODIUM CHLORIDE 22 ML CP ONE (15:58)
[2024-03-24 19:09] VITALS: BP 103/68; PULSE 67; RESP 18; TEMP 97.8
== END 2024-03-24 16:10 | disposition home or self-care (01) ==
LOC: JONCCHEMO 10:42 → J7W 10:43 → JONCCHEMO 16:10
PROVIDERS: ATTEND Internal Medicine Hematology & Oncology
DX: Z51.11 Encounter for antineoplastic chemotherapy (principal); C15.8 Malignant neoplasm of overlapping sites of esophagus
CPT/HCPCS: 36415; 80048; 80076; 85025; 96365; 96366; 96375; 96409; G0498; J2469

== ENCOUNTER 2024-04-07 10:33 | Day surgery (SDC) | payer OTHER ==
[2024-04-07 11:00] LABS: BASO % 1.1 % (0-2.0); EOS % 3.7 % (0-4.5); HEMATOCRIT 39.8 % (35.4-49); HEMOGLOBIN 13.8 GM/dL (11.7-16.9); MCH 30.9 pg (25.7-33.7); MCHC 34.8 g/dl (32.0-35.9); MEAN CELL VOLUME 88.9 fl (80-96); MEAN PLT VOLUME 7.6 fl (7.5-11.1); MONO % 8.9 % (3.8-10.2); NEUT % 70.3 % (42.8-82.8); PLATELET COUNT 223 10^3/uL (134-434); RBC 4.48 M/mm3 (4.00-5.60); RDW 15.3 % (11.9-15.9); WHITE BLOOD COUNT 6.7 K/mm3 (4.0-10.0)
[2024-04-07 11:21] LABS: CHLORIDE 107 mmol/L (98-107); POTASSIUM 3.6 mmol/L (3.5-5.1); SODIUM 138 mmol/L (136-145)
[2024-04-07 11:23] LABS: ALBUMIN 3.6 g/dl (3.4-5.0)
[2024-04-07 11:24] LABS: ANION GAP 6 mmol/L (4-13); BLOOD UREA NITROGEN 11.4 mg/dL (7-18); CALCIUM 8.3 mg/dL (8.5-10.1); CO2 25 mmol/L (21-32)
[2024-04-07 11:25] LABS: GLUCOSE,RANDOM 99 mg/dL (74-106)
[2024-04-07 11:27] LABS: BILIRUBIN,DIRECT 0.2 mg/dL (0.0-0.2); SGPT/ALT 15 U/L (13-61)
[2024-04-07 11:28] LABS: CREATININE 0.9 mg/dL (0.55-1.3); SGOT/AST 8 U/L (15-37)
[2024-04-07 11:29] LABS: BILIRUBIN,TOTAL 1.1 mg/dL (0.2-1); TOT PROT 6.5 g/dl (6.4-8.2)
[2024-04-07 11:30] LABS: ALK PHOS 72 U/L (45-117)
[2024-04-07] MEDS: PALONOSETRON HCL 0.25 MG/5 ML VIAL IVPUSH ONE (12:08)
[2024-04-07] MEDS: SODIUM CHLORIDE 250 ML IV ONE (12:08)
[2024-04-07] MEDS: DEXAMETHASONE SODIUM PHOSPHATE 10 MG in SODIUM CHLORIDE 50 ML IVPB ONE (12:09)
[2024-04-07] MEDS: WATER IVPB ONE (12:55)
[2024-04-07] MEDS: LEUCOVORIN CALCIUM IVPB ONE (12:55)
[2024-04-07] MEDS: DEXTROSE 5% IVPB ONE (12:55)
[2024-04-07] MEDS: FLUOROURACIL 1,000 MG/20 ML VIAL IVPUSH ONE (15:06)
[2024-04-07] MEDS: PORTA CATH FLUSH 10 ML IVPUSH PRN (15:07)
[2024-04-07] MEDS: FLUOROURACIL 3,500 MG in SODIUM CHLORIDE 22 ML CP ONE (15:08)
[2024-04-07 16:12] VITALS: TEMP 97.7
[2024-04-07 16:25] VITALS: BP 127/82; PULSE 78; RESP 20
== END 2024-04-07 15:15 | disposition home or self-care (01) ==
LOC: JONCCHEMO 10:33 → J7W 10:34 → JONCCHEMO 15:15
PROVIDERS: ATTEND Internal Medicine Hematology & Oncology
PROC: 3E04305 Introduction of Other Antineoplastic into Central Vein, Percutaneous Approach (ICD-10-PCS; principal; 2024-04-07)
PROC: 3E043GC Introduction of Other Therapeutic Substance into Central Vein, Percutaneous Approach (ICD-10-PCS; 2024-04-07)
PROC: 3E0437Z Introduction of Electrolytic and Water Balance Substance into Central Vein, Percutaneous Approach (ICD-10-PCS; 2024-04-07)
DX: Z51.11 Encounter for antineoplastic chemotherapy (principal); C15.8 Malignant neoplasm of overlapping sites of esophagus
CPT/HCPCS: 36415; 80048; 80076; 85025; 96365; 96366; 96375; G0498; J2469

== ENCOUNTER 2024-04-22 10:51 | Day surgery (SDC) | payer OTHER ==
[~2024-04-22 10:51] MED LIST changes: +DEXAMETHASONE SODIUM PHOSPHATE 10 MG in SODIUM CHLORIDE 50 ML IVPB ONE; +FLUOROURACIL 1,000 MG/20 ML VIAL IVPUSH ONE; +FLUOROURACIL 3,500 MG in SODIUM CHLORIDE 22 ML CP ONE; -LEUCOVORIN CALCIUM IVPB ONE; +LEUCOVORIN IVPB ONE; +PALONOSETRON HCL 0.25 MG/5 ML VIAL IVPUSH ONE; +SODIUM CHLORIDE 250 ML IV ONE
[2024-04-22 11:21] LABS: RBC 4.37 M/mm3 (4.00-5.60); WHITE BLOOD COUNT 6.9 K/mm3 (4.0-10.0)
[2024-04-22 11:22] LABS: BASO % 0.8 % (0-2.0); EOS % 2.9 % (0-4.5); HEMATOCRIT 39.3 % (35.4-49); HEMOGLOBIN 13.7 GM/dL (11.7-16.9); LYMPH % 15.7 % (8-40); MCH 31.3 pg (25.7-33.7); MCHC 34.7 g/dl (32.0-35.9); MEAN CELL VOLUME 90.1 fl (80-96); MEAN PLT VOLUME 8.1 fl (7.5-11.1); MONO % 9.9 % (3.8-10.2); NEUT % 70.7 % (42.8-82.8); PLATELET COUNT 213 10^3/uL (134-434); RDW 15.8 % (11.9-15.9)
[2024-04-22 11:47] LABS: CHLORIDE 110 mmol/L (98-107); POTASSIUM 3.8 mmol/L (3.5-5.1); SODIUM 144 mmol/L (136-145)
[2024-04-22] MEDS: SODIUM CHLORIDE 250 ML IV ONE (11:47)
[2024-04-22 11:50] LABS: ALBUMIN 3.5 g/dl (3.4-5.0); ANION GAP 8 mmol/L (4-13); BLOOD UREA NITROGEN 11.7 mg/dL (7-18); CALCIUM 9.7 mg/dL (8.5-10.1); CO2 25 mmol/L (21-32); GLUCOSE,RANDOM 81 mg/dL (74-106)
[2024-04-22 11:53] LABS: BILIRUBIN,DIRECT 0.2 mg/dL (0.0-0.2); CREATININE 0.8 mg/dL (0.55-1.3); SGOT/AST 13 U/L (15-37); SGPT/ALT 19 U/L (13-61)
[2024-04-22 11:55] LABS: TOT PROT 6.4 g/dl (6.4-8.2)
[2024-04-22 11:56] LABS: ALK PHOS 80 U/L (45-117)
[2024-04-22] MEDS: DEXAMETHASONE SODIUM PHOSPHATE 10 MG in SODIUM CHLORIDE 50 ML IVPB ONE (12:19)
[2024-04-22] MEDS: PALONOSETRON HCL 0.25 MG/5 ML VIAL IVPUSH ONE (12:19)
[2024-04-22] MEDS: DEXTROSE 5% IVPB ONE (12:52)
[2024-04-22] MEDS: WATER IVPB ONE (12:52)
[2024-04-22] MEDS: LEUCOVORIN IVPB ONE (12:52)
[2024-04-22] MEDS: PORTA CATH FLUSH 10 ML IVPUSH PRN (15:50)
[2024-04-22] MEDS: FLUOROURACIL 1,000 MG/20 ML VIAL IVPUSH ONE (15:51)
[2024-04-22] MEDS: FLUOROURACIL 3,500 MG in SODIUM CHLORIDE 22 ML CP ONE (15:52)
[2024-04-22 17:13] VITALS: BP 115/84; PULSE 73; RESP 20; TEMP 97.6
== END 2024-04-22 16:15 | disposition home health service (06) ==
LOC: JONCCHEMO 10:51 → J7W 10:52 → JONCCHEMO 16:15
PROVIDERS: ATTEND Internal Medicine Hematology & Oncology
PROC: 3E04305 Introduction of Other Antineoplastic into Central Vein, Percutaneous Approach (ICD-10-PCS; principal; 2024-04-22)
PROC: 3E043GC Introduction of Other Therapeutic Substance into Central Vein, Percutaneous Approach (ICD-10-PCS; 2024-04-22)
PROC: 3E0437Z Introduction of Electrolytic and Water Balance Substance into Central Vein, Percutaneous Approach (ICD-10-PCS; 2024-04-22)
DX: Z51.11 Encounter for antineoplastic chemotherapy (principal); C15.8 Malignant neoplasm of overlapping sites of esophagus
CPT/HCPCS: 36415; 80048; 80076; 82378; 85025; 96365; 96367; 96375; 96409; G0498; J2469

== ENCOUNTER 2024-04-24 14:11 | Day surgery (SDC) | payer OTHER ==
[2024-04-24] MEDS: PORTA CATH FLUSH 10 ML IVPUSH PRN (14:15)
[2024-04-25 01:52] VITALS: BP 106/75; PULSE 75; RESP 20; TEMP 98.4
== END 2024-04-24 14:25 | disposition home or self-care (01) ==
LOC: JONCCHEMO 14:11 → J7W 14:12 → JONCCHEMO 14:25
PROVIDERS: ATTEND Internal Medicine Hematology & Oncology
DX: Z53.8 Procedure and treatment not carried out for other reasons (principal)

== ENCOUNTER 2024-05-06 10:52 | Day surgery (SDC) | payer OTHER ==
[2024-05-06 11:52] LABS: BASO % 1.2 % (0-2.0); EOS % 3.2 % (0-4.5); HEMATOCRIT 40.1 % (35.4-49); HEMOGLOBIN 13.7 GM/dL (11.7-16.9); LYMPH % 16.8 % (8-40); MCH 31.2 pg (25.7-33.7); MCHC 34.1 g/dl (32.0-35.9); MEAN CELL VOLUME 91.6 fl (80-96); MEAN PLT VOLUME 8.3 fl (7.5-11.1); MONO % 9.6 % (3.8-10.2); NEUT % 69.2 % (42.8-82.8); PLATELET COUNT 221 10^3/uL (134-434); RBC 4.37 M/mm3 (4.00-5.60); RDW 16.3 % (11.9-15.9); WHITE BLOOD COUNT 6.2 K/mm3 (4.0-10.0)
[2024-05-06] MEDS: SODIUM CHLORIDE 250 ML IV ONE (12:05)
[2024-05-06 12:18] LABS: CHLORIDE 106 mmol/L (98-107); POTASSIUM 3.7 mmol/L (3.5-5.1); SODIUM 139 mmol/L (136-145)
[2024-05-06 12:20] LABS: CALCIUM 9.2 mg/dL (8.5-10.1)
[2024-05-06 12:21] LABS: ALBUMIN 3.5 g/dl (3.4-5.0); ANION GAP 7 mmol/L (4-13); BLOOD UREA NITROGEN 10.8 mg/dL (7-18); CO2 26 mmol/L (21-32); GLUCOSE,RANDOM 87 mg/dL (74-106)
[2024-05-06 12:23] LABS: BILIRUBIN,DIRECT 0.2 mg/dL (0.0-0.2)
[2024-05-06 12:24] LABS: CREATININE 0.9 mg/dL (0.55-1.3); SGOT/AST 8 U/L (15-37); SGPT/ALT 18 U/L (13-61)
[2024-05-06 12:25] LABS: BILIRUBIN,TOTAL 0.8 mg/dL (0.2-1); TOT PROT 6.4 g/dl (6.4-8.2)
[2024-05-06 12:27] LABS: ALK PHOS 72 U/L (45-117)
[2024-05-06] MEDS: PALONOSETRON HCL 0.25 MG/5 ML VIAL IVPUSH ONE (13:26)
[2024-05-06] MEDS: DEXAMETHASONE SODIUM PHOSPHATE 10 MG in SODIUM CHLORIDE 50 ML IVPB ONE (13:31)
[2024-05-06] MEDS: LEUCOVORIN IVPB ONE (14:07)
[2024-05-06] MEDS: DEXTROSE 5% IVPB ONE (14:07)
[2024-05-06] MEDS: WATER IVPB ONE (14:07)
[2024-05-06] MEDS: FLUOROURACIL 1,000 MG/20 ML VIAL IVPUSH ONE (16:42)
[2024-05-06] MEDS: FLUOROURACIL 3,500 MG in SODIUM CHLORIDE 22 ML CP ONE (16:44)
[2024-05-06 17:30] VITALS: TEMP 97.6
[2024-05-06 17:55] VITALS: BP 106/74; PULSE 75; RESP 18
[2024-05-06] MEDS ORDERED: PORTA CATH FLUSH 10 ML IVPUSH PRN (17:55)
== END 2024-05-06 16:55 | disposition home or self-care (01) ==
LOC: JONCCHEMO 10:52 → J7W 10:56 → JONCCHEMO 16:55
PROVIDERS: ATTEND Internal Medicine Hematology & Oncology
PROC: 3E04305 Introduction of Other Antineoplastic into Central Vein, Percutaneous Approach (ICD-10-PCS; principal; 2024-05-06)
PROC: 3E043GC Introduction of Other Therapeutic Substance into Central Vein, Percutaneous Approach (ICD-10-PCS; 2024-05-06)
DX: Z51.11 Encounter for antineoplastic chemotherapy (principal); C15.9 Malignant neoplasm of esophagus, unspecified; C77.2 Secondary and unspecified malignant neoplasm of intra-abdominal lymph nodes
CPT/HCPCS: 36415; 80048; 80076; 85025; 96365; 96366; 96375; 96409; G0498

== ENCOUNTER 2024-05-08 14:00 | Day surgery (SDC) | payer OTHER ==
[2024-05-08] MEDS: PORTA CATH FLUSH 10 ML IVPUSH PRN (14:45)
[2024-05-08 15:18] VITALS: BP 113/70; PULSE 81; RESP 18; TEMP 97.9
== END 2024-05-08 15:00 | disposition home or self-care (01) ==
LOC: JONCCHEMO 14:00 → J7W 14:06 → JONCCHEMO 15:00
PROVIDERS: ATTEND Internal Medicine Hematology & Oncology
PROC: 3C1ZX8Z Irrigation of Indwelling Device using Irrigating Substance, External Approach (ICD-10-PCS; principal; 2024-05-08)
DX: Z45.1 Encounter for adjustment and management of infusion pump (principal)
CPT/HCPCS: 96523

== ENCOUNTER 2024-05-20 10:34 | Day surgery (SDC) | payer OTHER ==
[2024-05-20] MEDS: SODIUM CHLORIDE 250 ML IV ONE (11:14)
[2024-05-20 11:21] LABS: BASO % 1.1 % (0-2.0); EOS % 3.3 % (0-4.5); HEMATOCRIT 39.1 % (35.4-49); HEMOGLOBIN 13.7 GM/dL (11.7-16.9); LYMPH % 15.9 % (8-40); MCH 31.8 pg (25.7-33.7); MCHC 35.1 g/dl (32.0-35.9); MEAN CELL VOLUME 90.6 fl (80-96); MEAN PLT VOLUME 7.8 fl (7.5-11.1); MONO % 8.8 % (3.8-10.2); NEUT % 70.9 % (42.8-82.8); PLATELET COUNT 221 10^3/uL (134-434); RBC 4.31 M/mm3 (4.00-5.60); RDW 16.4 % (11.9-15.9); WHITE BLOOD COUNT 6.5 K/mm3 (4.0-10.0)
[2024-05-20 11:48] LABS: CHLORIDE 109 mmol/L (98-107); POTASSIUM 3.7 mmol/L (3.5-5.1); SODIUM 140 mmol/L (136-145)
[2024-05-20 11:50] LABS: CALCIUM 8.8 mg/dL (8.5-10.1)
[2024-05-20 11:51] LABS: ALBUMIN 3.3 g/dl (3.4-5.0); ANION GAP 6 mmol/L (4-13); BLOOD UREA NITROGEN 13.5 mg/dL (7-18); CO2 26 mmol/L (21-32); GLUCOSE,RANDOM 111 mg/dL (74-106)
[2024-05-20 11:55] LABS: BILIRUBIN,DIRECT 0.2 mg/dL (0.0-0.2); CREATININE 0.8 mg/dL (0.55-1.3); SGOT/AST 8 U/L (15-37); SGPT/ALT 19 U/L (13-61)
[2024-05-20 11:56] LABS: TOT PROT 6.1 g/dl (6.4-8.2)
[2024-05-20 11:57] LABS: ALK PHOS 68 U/L (45-117)
[2024-05-20] MEDS: DEXAMETHASONE SODIUM PHOSPHATE 10 MG in SODIUM CHLORIDE 50 ML IVPB ONE (12:40)
[2024-05-20] MEDS: PALONOSETRON HCL 0.25 MG/5 ML VIAL IVPUSH ONE (13:31)
[2024-05-20] MEDS: DEXTROSE 5% IVPB ONE (13:32)
[2024-05-20] MEDS: WATER IVPB ONE (13:32)
[2024-05-20] MEDS: LEUCOVORIN IVPB ONE (13:32)
[2024-05-20] MEDS: FLUOROURACIL 1,000 MG/20 ML VIAL IVPUSH ONE (15:54)
[2024-05-20] MEDS: FLUOROURACIL 3,500 MG in SODIUM CHLORIDE 22 ML CP ONE (16:04)
[2024-05-21 08:31] VITALS: BP 114/76; PULSE 79; RESP 18; TEMP 98
== END 2024-05-20 16:20 | disposition home or self-care (01) ==
LOC: JONCCHEMO 10:34 → J7W 11:12 → JONCCHEMO 16:20
PROVIDERS: ATTEND Internal Medicine Hematology & Oncology
DX: Z51.11 Encounter for antineoplastic chemotherapy (principal); C15.8 Malignant neoplasm of overlapping sites of esophagus
CPT/HCPCS: 36415; 80048; 80076; 85025; 96365; 96366; 96375; 96409; G0498

== ENCOUNTER 2024-06-03 10:33 | Day surgery (SDC) | payer OTHER ==
[2024-06-03 10:37] LABS: BASO % 0.7 % (0-2.0); EOS % 2.8 % (0-4.5); HEMATOCRIT 41.9 % (35.4-49); HEMOGLOBIN 14.3 GM/dL (11.7-16.9); LYMPH % 16.1 % (8-40); MCH 31.3 pg (25.7-33.7); MCHC 34.3 g/dl (32.0-35.9); MEAN CELL VOLUME 91.5 fl (80-96); MEAN PLT VOLUME 7.8 fl (7.5-11.1); MONO % 9.4 % (3.8-10.2); PLATELET COUNT 247 10^3/uL (134-434); RBC 4.58 M/mm3 (4.00-5.60); RDW 16.2 % (11.9-15.9); WHITE BLOOD COUNT 8.8 K/mm3 (4.0-10.0)
[2024-06-03] MEDS: SODIUM CHLORIDE 250 ML IV ONE (10:39)
[2024-06-03 10:47] LABS: POTASSIUM 3.8 mmol/L (3.5-5.1)
[2024-06-03 10:49] LABS: CALCIUM 9.3 mg/dL (8.5-10.1)
[2024-06-03 10:50] LABS: ALBUMIN 3.8 g/dl (3.4-5.0); BLOOD UREA NITROGEN 13.1 mg/dL (7-18)
[2024-06-03 10:52] LABS: BILIRUBIN,DIRECT 0.3 mg/dL (0.0-0.2)
[2024-06-03 10:53] LABS: CREATININE 0.9 mg/dL (0.55-1.3)
[2024-06-03 10:54] LABS: BILIRUBIN,TOTAL 1.3 mg/dL (0.2-1); TOT PROT 6.6 g/dl (6.4-8.2)
[2024-06-03] MEDS: PALONOSETRON HCL 0.25 MG/5 ML VIAL IVPUSH ONE (11:30)
[2024-06-03] MEDS: DEXAMETHASONE SODIUM PHOSPHATE 10 MG in DEXTROSE 5%-WATER - 50 ML IVPB ONE (11:33)
[2024-06-03] MEDS: LEUCOVORIN IVPB ONE (12:01)
[2024-06-03] MEDS: DEXTROSE 5% IVPB ONE (12:01)
[2024-06-03] MEDS: WATER IVPB ONE (12:01)
[2024-06-03 12:09] VITALS: RESP 18; TEMP 97.8
[2024-06-03] MEDS: FLUOROURACIL 1,000 MG/20 ML VIAL IVPUSH ONE (14:06)
[2024-06-03] MEDS: FLUOROURACIL 3,500 MG in SODIUM CHLORIDE 22 ML CP ONE (14:15)
[2024-06-03 15:27] VITALS: BP 113/71; PULSE 80
== END 2024-06-03 14:45 | disposition home or self-care (01) ==
LOC: JONCCHEMO 10:33
PROVIDERS: ATTEND Internal Medicine Hematology & Oncology
PROC: 3E04305 Introduction of Other Antineoplastic into Central Vein, Percutaneous Approach (ICD-10-PCS; principal; 2024-06-03)
PROC: 3E043GC Introduction of Other Therapeutic Substance into Central Vein, Percutaneous Approach (ICD-10-PCS; 2024-06-03)
DX: Z51.11 Encounter for antineoplastic chemotherapy (principal); C15.8 Malignant neoplasm of overlapping sites of esophagus
CPT/HCPCS: 36415; 80048; 80076; 85025; 96365; 96366; 96375; 96409; G0498

== ENCOUNTER 2024-06-17 11:35 | Day surgery (SDC) | payer OTHER ==
[2024-06-17 11:46] LABS: EOS % 3.3 % (0-4.5); HEMATOCRIT 40.5 % (35.4-49); HEMOGLOBIN 14.2 GM/dL (11.7-16.9); LYMPH % 16.6 % (8-40); MCH 31.6 pg (25.7-33.7); MEAN CELL VOLUME 90.3 fl (80-96); MEAN PLT VOLUME 7.5 fl (7.5-11.1); NEUT % 68.1 % (42.8-82.8); PLATELET COUNT 237 10^3/uL (134-434); RBC 4.48 M/mm3 (4.00-5.60); WHITE BLOOD COUNT 6.4 K/mm3 (4.0-10.0)
[2024-06-17] MEDS: SODIUM CHLORIDE 250 ML IV ONE (12:15)
[2024-06-17 12:31] LABS: CHLORIDE 106 mmol/L (98-107); POTASSIUM 3.9 mmol/L (3.5-5.1); SODIUM 137 mmol/L (136-145)
[2024-06-17 12:32] LABS: ALBUMIN 3.6 g/dl (3.4-5.0); ANION GAP 3 mmol/L (4-13); CALCIUM 8.9 mg/dL (8.5-10.1); CO2 28 mmol/L (21-32)
[2024-06-17 12:33] LABS: GLUCOSE,RANDOM 94 mg/dL (74-106)
[2024-06-17 12:35] LABS: BILIRUBIN,DIRECT 0.2 mg/dL (0.0-0.2); CREATININE 0.9 mg/dL (0.55-1.3); SGOT/AST 10 U/L (15-37); SGPT/ALT 17 U/L (13-61)
[2024-06-17 12:37] LABS: BILIRUBIN,TOTAL 1.2 mg/dL (0.2-1); TOT PROT 6.6 g/dl (6.4-8.2)
[2024-06-17 12:38] LABS: ALK PHOS 69 U/L (45-117)
[2024-06-17] MEDS: PALONOSETRON HCL 0.25 MG/5 ML VIAL IVPUSH ONE (13:01)
[2024-06-17] MEDS: DEXAMETHASONE SODIUM PHOSPHATE 10 MG in SODIUM CHLORIDE 50 ML IVPB ONE (13:01)
[2024-06-17] MEDS: WATER IVPB ONE (13:21)
[2024-06-17] MEDS: DEXTROSE 5% IVPB ONE (13:21)
[2024-06-17] MEDS: LEUCOVORIN IVPB ONE (13:21)
[2024-06-17 14:43] VITALS: RESP 20; TEMP 97.8
[2024-06-17] MEDS: PORTA CATH FLUSH 10 ML IVPUSH PRN (15:41)
[2024-06-17] MEDS: FLUOROURACIL 1,000 MG/20 ML VIAL IVPUSH ONE (15:42)
[2024-06-17] MEDS: FLUOROURACIL 3,500 MG in SODIUM CHLORIDE 22 ML CP ONE (15:44)
[2024-06-17 16:14] VITALS: BP 102/63; PULSE 77
== END 2024-06-17 16:23 | disposition home or self-care (01) ==
LOC: JONCCHEMO 11:35
PROVIDERS: ATTEND Internal Medicine Hematology & Oncology
PROC: 3E04305 Introduction of Other Antineoplastic into Central Vein, Percutaneous Approach (ICD-10-PCS; principal; 2024-06-17)
PROC: 3E033GC Introduction of Other Therapeutic Substance into Peripheral Vein, Percutaneous Approach (ICD-10-PCS; 2024-06-17)
DX: Z51.11 Encounter for antineoplastic chemotherapy (principal); C15.5 Malignant neoplasm of lower third of esophagus
CPT/HCPCS: 36415; 80048; 80076; 82378; 85025; 96365; 96413; 96415; G0498

== ENCOUNTER 2024-07-01 10:40 | Day surgery (SDC) | payer OTHER ==
[2024-07-01] MEDS: SODIUM CHLORIDE 250 ML IV ONE (11:00)
[2024-07-01 11:16] LABS: BASO % 0.9 % (0-2.0); EOS % 3.3 % (0-4.5); HEMATOCRIT 40.4 % (35.4-49); HEMOGLOBIN 13.8 GM/dL (11.7-16.9); LYMPH % 17.5 % (8-40); MCH 31.4 pg (25.7-33.7); MCHC 34.3 g/dl (32.0-35.9); MEAN CELL VOLUME 91.8 fl (80-96); MEAN PLT VOLUME 7.8 fl (7.5-11.1); MONO % 9.4 % (3.8-10.2); NEUT % 68.9 % (42.8-82.8); PLATELET COUNT 225 10^3/uL (134-434); RDW 15.9 % (11.9-15.9); WHITE BLOOD COUNT 6.3 K/mm3 (4.0-10.0)
[2024-07-01 12:22] LABS: CHLORIDE 106 mmol/L (98-107); POTASSIUM 3.6 mmol/L (3.5-5.1); SODIUM 139 mmol/L (136-145)
[2024-07-01 12:24] LABS: CALCIUM 8.9 mg/dL (8.5-10.1)
[2024-07-01 12:25] LABS: ALBUMIN 3.3 g/dl (3.4-5.0); ANION GAP 7 mmol/L (4-13); BLOOD UREA NITROGEN 9.6 mg/dL (7-18); CO2 26 mmol/L (21-32); GLUCOSE,RANDOM 103 mg/dL (74-106)
[2024-07-01 12:27] LABS: BILIRUBIN,DIRECT 0.2 mg/dL (0.0-0.2)
[2024-07-01 12:28] LABS: CREATININE 0.9 mg/dL (0.55-1.3); SGOT/AST 10 U/L (15-37); SGPT/ALT 14 U/L (13-61)
[2024-07-01 12:30] LABS: TOT PROT 6.2 g/dl (6.4-8.2)
[2024-07-01 12:31] LABS: ALK PHOS 72 U/L (45-117)
[2024-07-01] MEDS: PALONOSETRON HCL 0.25 MG/5 ML VIAL IVPUSH ONE (12:45)
[2024-07-01] MEDS: DEXAMETHASONE SODIUM PHOSPHATE 10 MG in SODIUM CHLORIDE 50 ML IVPB ONE (12:47)
[2024-07-01] MEDS: DEXTROSE 5% IVPB ONE (13:20)
[2024-07-01] MEDS: LEUCOVORIN IVPB ONE (13:20)
[2024-07-01] MEDS: WATER IVPB ONE (13:20)
[2024-07-01] MEDS: FLUOROURACIL 1,000 MG/20 ML VIAL IVPUSH ONE (15:42)
[2024-07-01] MEDS: FLUOROURACIL 3,500 MG in SODIUM CHLORIDE 22 ML CP ONE (15:48)
[2024-07-01 17:05] VITALS: BP 113/79; PULSE 75; RESP 20; TEMP 97.4
== END 2024-07-01 16:00 | disposition home or self-care (01) ==
LOC: JONCCHEMO 10:40 → J7W 10:41 → JONCCHEMO 16:00
PROVIDERS: ATTEND Internal Medicine Hematology & Oncology
PROC: 3E04305 Introduction of Other Antineoplastic into Central Vein, Percutaneous Approach (ICD-10-PCS; principal; 2024-07-01)
PROC: 3E033GC Introduction of Other Therapeutic Substance into Peripheral Vein, Percutaneous Approach (ICD-10-PCS; 2024-07-01)
PROC: 3E0337Z Introduction of Electrolytic and Water Balance Substance into Peripheral Vein, Percutaneous Approach (ICD-10-PCS; 2024-07-01)
DX: Z51.11 Encounter for antineoplastic chemotherapy (principal); C15.5 Malignant neoplasm of lower third of esophagus
CPT/HCPCS: 36415; 80048; 80076; 85025; 96365; 96366; 96375; G0498

== ENCOUNTER 2024-07-15 11:07 | Day surgery (SDC) | payer OTHER ==
[2024-07-15] MEDS: SODIUM CHLORIDE 250 ML IV ONE (11:23)
[2024-07-15 11:36] LABS: BASO % 1.6 % (0-2.0); HEMATOCRIT 38.2 % (35.4-49); HEMOGLOBIN 13.1 GM/dL (11.7-16.9); MCH 31.6 pg (25.7-33.7); MCHC 34.2 g/dl (32.0-35.9); MEAN CELL VOLUME 92.3 fl (80-96); MEAN PLT VOLUME 8.2 fl (7.5-11.1); MONO % 10.6 % (3.8-10.2); NEUT % 64.8 % (42.8-82.8); PLATELET COUNT 221 10^3/uL (134-434); RBC 4.14 M/mm3 (4.00-5.60); RDW 15.6 % (11.9-15.9); WHITE BLOOD COUNT 6.7 K/mm3 (4.0-10.0)
[2024-07-15 11:55] LABS: CHLORIDE 105 mmol/L (98-107); POTASSIUM 3.8 mmol/L (3.5-5.1); SODIUM 138 mmol/L (136-145)
[2024-07-15 11:58] LABS: ALBUMIN 3.4 g/dl (3.4-5.0); ANION GAP 6 mmol/L (4-13); BLOOD UREA NITROGEN 15.5 mg/dL (7-18); CO2 27 mmol/L (21-32); GLUCOSE,RANDOM 98 mg/dL (74-106)
[2024-07-15 12:00] LABS: BILIRUBIN,DIRECT 0.3 mg/dL (0.0-0.2); SGOT/AST 10 U/L (15-37); SGPT/ALT 16 U/L (13-61)
[2024-07-15 12:01] LABS: CREATININE 0.9 mg/dL (0.55-1.3)
[2024-07-15 12:02] LABS: BILIRUBIN,TOTAL 1.1 mg/dL (0.2-1)
[2024-07-15 12:04] LABS: ALK PHOS 65 U/L (45-117)
[2024-07-15] MEDS: DEXAMETHASONE SODIUM PHOSPHATE 10 MG in SODIUM CHLORIDE 50 ML IVPB ONE (12:24)
[2024-07-15] MEDS: WATER IVPB ONE (13:19)
[2024-07-15] MEDS: DEXTROSE 5% IVPB ONE (13:19)
[2024-07-15] MEDS: LEUCOVORIN IVPB ONE (13:19)
[2024-07-15] MEDS: PALONOSETRON HCL 0.25 MG/5 ML VIAL IVPUSH ONE (13:19)
[2024-07-15 14:04] VITALS: TEMP 97.3
[2024-07-15] MEDS ORDERED: PORTA CATH FLUSH 10 ML IVPUSH PRN (14:07)
[2024-07-15] MEDS: FLUOROURACIL 1,000 MG/20 ML VIAL IVPUSH ONE (15:34)
[2024-07-15] MEDS: FLUOROURACIL 3,500 MG in SODIUM CHLORIDE 22 ML CP ONE (15:35)
[2024-07-15 16:45] VITALS: BP 109/76; PULSE 72; RESP 18
== END 2024-07-15 15:45 | disposition home or self-care (01) ==
LOC: JONCCHEMO 11:07 → J7W 11:08 → JONCCHEMO 15:45
PROVIDERS: ATTEND Internal Medicine Hematology & Oncology
PROC: 3E04305 Introduction of Other Antineoplastic into Central Vein, Percutaneous Approach (ICD-10-PCS; principal; 2024-07-15)
PROC: 3E043GC Introduction of Other Therapeutic Substance into Central Vein, Percutaneous Approach (ICD-10-PCS; 2024-07-15)
PROC: 3E043GC Introduction of Other Therapeutic Substance into Central Vein, Percutaneous Approach (ICD-10-PCS; 2024-07-15)
DX: Z51.11 Encounter for antineoplastic chemotherapy (principal); C15.5 Malignant neoplasm of lower third of esophagus
CPT/HCPCS: 36415; 80048; 80076; 85025; 96365; 96366; 96375; 96409; G0498

== ENCOUNTER 2024-08-12 10:26 | Day surgery (SDC) | payer OTHER ==
[2024-08-12 11:23] LABS: BASO % 1.1 % (0-2.0); EOS % 2.6 % (0-4.5); HEMATOCRIT 35.1 % (35.4-49); HEMOGLOBIN 11.8 GM/dL (11.7-16.9); LYMPH % 13.2 % (8-40); MCH 30.5 pg (25.7-33.7); MCHC 33.7 g/dl (32.0-35.9); MEAN CELL VOLUME 90.4 fl (80-96); MEAN PLT VOLUME 8.8 fl (7.5-11.1); MONO % 8.6 % (3.8-10.2); NEUT % 74.5 % (42.8-82.8); PLATELET COUNT 268 10^3/uL (134-434); RBC 3.88 M/mm3 (4.00-5.60); RDW 15.2 % (11.9-15.9); WHITE BLOOD COUNT 7.9 K/mm3 (4.0-10.0)
[2024-08-12] MEDS: SODIUM CHLORIDE 250 ML IV ONE (11:31)
[2024-08-12 11:42] LABS: POTASSIUM 3.6 mmol/L (3.5-5.1)
[2024-08-12 11:44] LABS: CALCIUM 9.3 mg/dL (8.5-10.1)
[2024-08-12 11:45] LABS: ALBUMIN 3.5 g/dl (3.4-5.0); BLOOD UREA NITROGEN 10.5 mg/dL (7-18)
[2024-08-12 11:47] LABS: BILIRUBIN,DIRECT 0.2 mg/dL (0.0-0.2)
[2024-08-12 11:48] LABS: CREATININE 0.9 mg/dL (0.55-1.3)
[2024-08-12 11:49] LABS: BILIRUBIN,TOTAL 0.8 mg/dL (0.2-1); TOT PROT 6.3 g/dl (6.4-8.2)
[2024-08-12] MEDS: PALONOSETRON HCL 0.25 MG/5 ML VIAL IVPUSH ONE (12:18)
[2024-08-12] MEDS: DEXAMETHASONE SODIUM PHOSPHATE 10 MG in SODIUM CHLORIDE 50 ML IVPB ONE (12:18)
[2024-08-12] MEDS: WATER IVPB ONE (13:25)
[2024-08-12] MEDS: LEUCOVORIN IVPB ONE (13:25)
[2024-08-12] MEDS: DEXTROSE 5% IVPB ONE (13:25)
[2024-08-12 15:27] VITALS: RESP 20; TEMP 97.8
[2024-08-12] MEDS: FLUOROURACIL 1,000 MG/20 ML VIAL IVPUSH ONE (15:38)
[2024-08-12] MEDS: FLUOROURACIL 3,500 MG in SODIUM CHLORIDE 22 ML CP ONE (15:41)
[2024-08-12] MEDS: PORTA CATH FLUSH 10 ML IVPUSH PRN (15:45)
[2024-08-12 15:47] VITALS: BP 105/71; PULSE 81
== END 2024-08-12 16:00 | disposition home or self-care (01) ==
LOC: JONCCHEMO 10:26
PROVIDERS: ATTEND Internal Medicine Hematology & Oncology
PROC: 3E04305 Introduction of Other Antineoplastic into Central Vein, Percutaneous Approach (ICD-10-PCS; principal; 2024-08-12)
PROC: 3E043GC Introduction of Other Therapeutic Substance into Central Vein, Percutaneous Approach (ICD-10-PCS; 2024-08-12)
DX: Z51.11 Encounter for antineoplastic chemotherapy (principal); C15.9 Malignant neoplasm of esophagus, unspecified
CPT/HCPCS: 36415; 80048; 80076; 85025; 96366; 96367; 96375; 96409; G0498

== ENCOUNTER 2024-08-26 10:46 | Day surgery (SDC) | payer OTHER ==
[2024-08-26 10:56] LABS: BASO % 0.8 % (0-2.0); EOS % 3.7 % (0-4.5); HEMATOCRIT 37.1 % (35.4-49); HEMOGLOBIN 12.3 GM/dL (11.7-16.9); LYMPH % 12.7 % (8-40); MCH 29.7 pg (25.7-33.7); MCHC 33.2 g/dl (32.0-35.9); MEAN CELL VOLUME 89.5 fl (80-96); MEAN PLT VOLUME 7.5 fl (7.5-11.1); MONO % 9.5 % (3.8-10.2); NEUT % 73.3 % (42.8-82.8); PLATELET COUNT 337 10^3/uL (134-434); RBC 4.15 M/mm3 (4.00-5.60); RDW 14.9 % (11.9-15.9); WHITE BLOOD COUNT 7.8 K/mm3 (4.0-10.0)
[2024-08-26 11:20] LABS: CHLORIDE 107 mmol/L (98-107); POTASSIUM 4.3 mmol/L (3.5-5.1); SODIUM 141 mmol/L (136-145)
[2024-08-26 11:22] LABS: ALBUMIN 3.4 g/dl (3.4-5.0); ANION GAP 6 mmol/L (4-13); CALCIUM 9.1 mg/dL (8.5-10.1); CO2 28 mmol/L (21-32); GLUCOSE,RANDOM 93 mg/dL (74-106)
[2024-08-26 11:25] LABS: BILIRUBIN,DIRECT 0.2 mg/dL (0.0-0.2); CREATININE 0.9 mg/dL (0.55-1.3); SGOT/AST 8 U/L (15-37); SGPT/ALT 15 U/L (13-61)
[2024-08-26 11:27] LABS: BILIRUBIN,TOTAL 0.8 mg/dL (0.2-1); TOT PROT 6.5 g/dl (6.4-8.2)
[2024-08-26 11:28] LABS: ALK PHOS 84 U/L (45-117)
[2024-08-26] MEDS: SODIUM CHLORIDE 250 ML IV ONE (11:35)
[2024-08-26] MEDS: FOSAPREPITANT DIMEGLUMINE 150 MG in SODIUM CHLORIDE 145 ML IVPB ONE (12:32)
[2024-08-26] MEDS: SODIUM CHLORIDE IVPB ONE ×3 (13:09→16:03)
[2024-08-26] MEDS: PALONOSETRON HCL 0.25 MG/5 ML VIAL IVPUSH ONE (13:09)
[2024-08-26] MEDS: PEMBROLIZUMAB IVPB ONE (13:09)
[2024-08-26] MEDS: CISPLATIN IVPB ONE (13:58)
[2024-08-26] MEDS: LEUCOVORIN IVPB ONE (16:03)
[2024-08-26 16:11] VITALS: RESP 20; TEMP 98.1
[2024-08-26] MEDS: FLUOROURACIL 1,000 MG/20 ML VIAL IVPUSH ONE (18:03)
[2024-08-26] MEDS: SODIUM CHLORIDE CP ONE (18:03)
[2024-08-26] MEDS: FLUOROURACIL CP ONE (18:03)
[2024-08-26] MEDS: PORTA CATH FLUSH 10 ML IVPUSH PRN (18:09)
[2024-08-26 18:15] VITALS: BP 121/76; PULSE 83
== END 2024-08-26 18:16 | disposition home or self-care (01) ==
LOC: JONCCHEMO 10:46 → J7W 10:47 → JONCCHEMO 18:16
PROVIDERS: ATTEND Internal Medicine Hematology & Oncology
DX: Z51.11 Encounter for antineoplastic chemotherapy (principal); C15.5 Malignant neoplasm of lower third of esophagus
CPT/HCPCS: 36415; 80048; 80076; 82150; 83690; 84439; 84443; 85025; 96366; 96367; 96375; 96413; 96415; 96416; 96417; G0498; J1453; J9271

== ENCOUNTER 2024-09-23 10:16 | Day surgery (SDC) | payer OTHER ==
[2024-09-23 11:35] LABS: BASO % 1.2 % (0-2.0); EOS % 0.7 % (0-4.5); HEMATOCRIT 30.7 % (35.4-49); HEMOGLOBIN 10.5 GM/dL (11.7-16.9); MCH 29.5 pg (25.7-33.7); MCHC 34.2 g/dl (32.0-35.9); MEAN CELL VOLUME 86.2 fl (80-96); MEAN PLT VOLUME 8.4 fl (7.5-11.1); MONO % 7.9 % (3.8-10.2); NEUT % 78.2 % (42.8-82.8); PLATELET COUNT 214 10^3/uL (134-434); RBC 3.56 M/mm3 (4.00-5.60); RDW 16.2 % (11.9-15.9); WHITE BLOOD COUNT 8.5 K/mm3 (4.0-10.0)
[2024-09-23 12:10] LABS: CHLORIDE 102 mmol/L (98-107); POTASSIUM 4.1 mmol/L (3.5-5.1); SODIUM 136 mmol/L (136-145)
[2024-09-23] MEDS: SODIUM CHLORIDE 250 ML IV ONE (12:10)
[2024-09-23 12:12] LABS: CALCIUM 9.2 mg/dL (8.5-10.1)
[2024-09-23 12:13] LABS: ALBUMIN 3.5 g/dl (3.4-5.0); ANION GAP 10 mmol/L (4-13); CO2 25 mmol/L (21-32); GLUCOSE,RANDOM 85 mg/dL (74-106)
[2024-09-23 12:14] LABS: BLOOD UREA NITROGEN 24.8 mg/dL (7-18)
[2024-09-23 12:15] LABS: AMYLASE 132 U/L (25-115)
[2024-09-23 12:17] LABS: BILIRUBIN,DIRECT 0.1 mg/dL (0.0-0.2); BILIRUBIN,TOTAL 0.4 mg/dL (0.2-1); CREATININE 1.3 mg/dL (0.55-1.3); SGOT/AST 12 U/L (15-37); SGPT/ALT 13 U/L (13-61)
[2024-09-23 12:18] LABS: TOT PROT 6.9 g/dl (6.4-8.2)
[2024-09-23 12:19] LABS: ALK PHOS 84 U/L (45-117)
[2024-09-23] MEDS: FOSAPREPITANT DIMEGLUMINE 150 MG in SODIUM CHLORIDE 145 ML IVPB ONE (13:16)
[2024-09-23] MEDS: DEXAMETHASONE SODIUM PHOSPHATE 10 MG in SODIUM CHLORIDE 50 ML IVPB SCH (14:06)
[2024-09-23] MEDS: PALONOSETRON HCL 0.25 MG/5 ML VIAL IVPUSH ONE (14:06)
[2024-09-23] MEDS: PEMBROLIZUMAB IV ONE (14:28)
[2024-09-23] MEDS: SODIUM CHLORIDE IV ONE (14:28)
[2024-09-23] MEDS: WATER IVPB ONE (15:02)
[2024-09-23] MEDS: LEUCOVORIN IVPB ONE (15:02)
[2024-09-23] MEDS: DEXTROSE 5% IVPB ONE (15:02)
[2024-09-23 16:37] VITALS: RESP 20; TEMP 97.8
[2024-09-23] MEDS: SODIUM CHLORIDE CP ONE (17:13)
[2024-09-23] MEDS: FLUOROURACIL 1,000 MG/20 ML VIAL IVPUSH ONE (17:13)
[2024-09-23] MEDS: FLUOROURACIL CP ONE (17:13)
[2024-09-23 17:23] VITALS: BP 129/86; PULSE 81
[2024-09-23] MEDS: PORTA CATH FLUSH 10 ML IVPUSH PRN (17:24)
== END 2024-09-23 18:09 | disposition home or self-care (01) ==
LOC: JONCCHEMO 10:16
PROVIDERS: ATTEND Internal Medicine Hematology & Oncology
DX: Z51.11 Encounter for antineoplastic chemotherapy (principal); C15.5 Malignant neoplasm of lower third of esophagus; C77.2 Secondary and unspecified malignant neoplasm of intra-abdominal lymph nodes
CPT/HCPCS: 36415; 80048; 80076; 82150; 83690; 84439; 84443; 85025; 96366; 96367; 96375; 96411; 96413; G0498; J1453; J9271

== ENCOUNTER 2024-10-07 11:06 | Day surgery (SDC) | payer OTHER ==
[2024-10-07 11:35] LABS: BASO % 0.8 % (0-2.0); HEMATOCRIT 28.7 % (35.4-49); HEMOGLOBIN 9.7 GM/dL (11.7-16.9); LYMPH % 17.3 % (8-40); MCH 28.7 pg (25.7-33.7); MCHC 33.9 g/dl (32.0-35.9); MEAN CELL VOLUME 84.7 fl (80-96); MEAN PLT VOLUME 7.6 fl (7.5-11.1); MONO % 18.1 % (3.8-10.2); NEUT % 57.8 % (42.8-82.8); PLATELET COUNT 220 10^3/uL (134-434); RBC 3.39 M/mm3 (4.00-5.60); RDW 16.7 % (11.9-15.9); WHITE BLOOD COUNT 4.9 K/mm3 (4.0-10.0)
[2024-10-07 11:51] LABS: CHLORIDE 103 mmol/L (98-107); POTASSIUM 3.2 mmol/L (3.5-5.1); SODIUM 137 mmol/L (136-145)
[2024-10-07 11:53] LABS: CALCIUM 8.7 mg/dL (8.5-10.1)
[2024-10-07 11:54] LABS: ALBUMIN 3.3 g/dl (3.4-5.0); ANION GAP 11 mmol/L (4-13); BLOOD UREA NITROGEN 26.7 mg/dL (7-18); CO2 24 mmol/L (21-32); GLUCOSE,RANDOM 100 mg/dL (74-106)
[2024-10-07 11:55] LABS: AMYLASE 165 U/L (25-115)
[2024-10-07 11:56] LABS: BILIRUBIN,DIRECT 0.1 mg/dL (0.0-0.2); SGPT/ALT 12 U/L (13-61)
[2024-10-07 11:57] LABS: CREATININE 1.3 mg/dL (0.55-1.3); SGOT/AST 15 U/L (15-37)
[2024-10-07 11:58] LABS: BILIRUBIN,TOTAL 0.6 mg/dL (0.2-1); TOT PROT 6.3 g/dl (6.4-8.2)
[2024-10-07 11:59] LABS: ALK PHOS 77 U/L (45-117)
[2024-10-07] MEDS: SODIUM CHLORIDE 250 ML IV ONE (12:00)
[2024-10-07] MEDS: FOSAPREPITANT DIMEGLUMINE 150 MG in SODIUM CHLORIDE 145 ML IVPB ONE (12:28)
[2024-10-07] MEDS: SODIUM CHLORIDE IV ONE (13:07)
[2024-10-07] MEDS: PALONOSETRON HCL 0.25 MG/5 ML VIAL IVPUSH ONE (13:07)
[2024-10-07] MEDS: PEMBROLIZUMAB IV ONE (13:07)
[2024-10-07] MEDS: WATER IVPB ONE (13:54)
[2024-10-07] MEDS: DEXTROSE 5% IVPB ONE (13:54)
[2024-10-07] MEDS: LEUCOVORIN IVPB ONE (13:54)
[2024-10-07] MEDS: FLUOROURACIL 1,000 MG/20 ML VIAL IVPUSH ONE (16:00)
[2024-10-07] MEDS: SODIUM CHLORIDE CP ONE (16:00)
[2024-10-07] MEDS: PORTA CATH FLUSH 10 ML IVPUSH PRN (16:00)
[2024-10-07] MEDS: FLUOROURACIL CP ONE (16:00)
[2024-10-07] MEDS: POTASSIUM CHLORIDE TABS 20 MEQ TABLET.ER (FP) PO ONE (16:00)
[2024-10-07 17:23] VITALS: RESP 16; TEMP 97.7
[2024-10-07 17:28] VITALS: BP 120/78; PULSE 99
== END 2024-10-07 16:10 | disposition home or self-care (01) ==
LOC: JONCBLOOD 11:06
PROVIDERS: ATTEND Internal Medicine Hematology & Oncology
PROC: 3E04305 Introduction of Other Antineoplastic into Central Vein, Percutaneous Approach (ICD-10-PCS; principal; 2024-10-07)
PROC: 3E043GC Introduction of Other Therapeutic Substance into Central Vein, Percutaneous Approach (ICD-10-PCS; 2024-10-07)
DX: Z51.11 Encounter for antineoplastic chemotherapy (principal); C15.5 Malignant neoplasm of lower third of esophagus; C77.2 Secondary and unspecified malignant neoplasm of intra-abdominal lymph nodes
CPT/HCPCS: 36415; 80048; 80076; 82150; 83690; 84439; 84443; 85025; 96366; 96367; 96375; 96413; 96417; G0498; J1453; J9271

== ENCOUNTER 2024-10-21 10:45 | Day surgery (SDC) | payer OTHER ==
[2024-10-21 11:26] LABS: ABSOLUTE IMMATURE GRANULOCYTES 0.03 x10^3/uL (0.0-0.031); BASOPHILS # 0.04 x10^3/uL (0.01-0.08); EOSINOPHIL % 4.3 % (0.8-7.0); EOSINOPHILS # 0.19 x10^3/uL (0.04-0.54); HEMATOCRIT 27.3 % (40.1-51.0); MEAN CELL VOLUME 86.9 fl (79.0-92.2); MEAN PLT VOLUME 10.1 fl (9.4-12.4); MONOCYTE # 0.83 x10^3/uL (0.30-0.82); MONOCYTE % 18.7 % (5.3-12.2); PLATELET COUNT # 300 x10^3/uL (163-337); RDW 16.1 % (12.2-16.4)
[2024-10-21 11:53] LABS: CHLORIDE 105 mmol/L (98-107); POTASSIUM 3.6 mmol/L (3.5-5.1); SODIUM 138 mmol/L (136-145)
[2024-10-21 11:55] LABS: CALCIUM 8.8 mg/dL (8.5-10.1)
[2024-10-21 11:56] LABS: ANION GAP 8 mmol/L (4-13); BLOOD UREA NITROGEN 15.5 mg/dL (7-18); CO2 25 mmol/L (21-32); GLUCOSE,RANDOM 93 mg/dL (74-106)
[2024-10-21 11:59] LABS: CREATININE 1.1 mg/dL (0.55-1.3)
[2024-10-21] MEDS: SODIUM CHLORIDE 250 ML IV ONE (12:00)
[2024-10-21 12:08] LABS: ALBUMIN 3.3 g/dl (3.4-5.0)
[2024-10-21 12:11] LABS: BILIRUBIN,DIRECT 0.2 mg/dL (0.0-0.2)
[2024-10-21 12:13] LABS: BILIRUBIN,TOTAL 0.7 mg/dL (0.2-1); TOT PROT 6.5 g/dl (6.4-8.2)
[2024-10-21] MEDS: FOSAPREPITANT DIMEGLUMINE 150 MG in SODIUM CHLORIDE 145 ML IVPB ONE (13:15)
[2024-10-21] MEDS: PALONOSETRON HCL 0.25 MG/5 ML VIAL IVPUSH ONE (13:55)
[2024-10-21] MEDS: DEXAMETHASONE SOD PHOSPHATE 10 MG/1 ML VIAL IVPB ONE (13:56)
[2024-10-21] MEDS: SODIUM CHLORIDE IV ONE (14:18)
[2024-10-21] MEDS: PEMBROLIZUMAB IV ONE (14:18)
[2024-10-21] MEDS: WATER IVPB ONE (14:49)
[2024-10-21] MEDS: LEUCOVORIN IVPB ONE (14:49)
[2024-10-21] MEDS: DEXTROSE 5% IVPB ONE (14:49)
[2024-10-21 16:08] VITALS: TEMP 98.2
[2024-10-21] MEDS ORDERED: PORTA CATH FLUSH 10 ML IVPUSH PRN (16:17)
[2024-10-21] MEDS: FLUOROURACIL 1,000 MG/20 ML VIAL IVPUSH ONE (16:51)
[2024-10-21] MEDS: SODIUM CHLORIDE CP ONE (16:52)
[2024-10-21] MEDS: FLUOROURACIL CP ONE (16:52)
[2024-10-21 17:12] VITALS: BP 124/87; PULSE 82; RESP 18
== END 2024-10-21 17:20 | disposition home or self-care (01) ==
LOC: JONCCHEMO 10:45
PROVIDERS: ATTEND Internal Medicine Hematology & Oncology
PROC: 3E04305 Introduction of Other Antineoplastic into Central Vein, Percutaneous Approach (ICD-10-PCS; principal; 2024-10-21)
PROC: 3E04305 Introduction of Other Antineoplastic into Central Vein, Percutaneous Approach (ICD-10-PCS; 2024-10-21)
PROC: 3E043GC Introduction of Other Therapeutic Substance into Central Vein, Percutaneous Approach (ICD-10-PCS; 2024-10-21)
DX: Z51.11 Encounter for antineoplastic chemotherapy (principal); C15.9 Malignant neoplasm of esophagus, unspecified; C77.2 Secondary and unspecified malignant neoplasm of intra-abdominal lymph nodes
CPT/HCPCS: 36415; 80048; 80076; 82150; 83690; 84439; 84443; 85025; 96366; 96367; 96375; 96413; G0498; J1100; J1453; J9271

== ENCOUNTER 2024-11-04 10:50 | Day surgery (SDC) | payer OTHER ==
[2024-11-04 12:03] LABS: ABSOLUTE IMMATURE GRANULOCYTES 0.04 x10^3/uL (0.0-0.031); BASOPHILS # 0.05 x10^3/uL (0.01-0.08); EOSINOPHIL % 3.8 % (0.8-7.0); EOSINOPHILS # 0.16 x10^3/uL (0.04-0.54); HEMATOCRIT 26.4 % (40.1-51.0); HEMOGLOBIN 8.7 g/dL (13.7-17.5); MEAN CELL VOLUME 90.4 fl (79.0-92.2); MONOCYTE # 0.71 x10^3/uL (0.30-0.82); PLATELET COUNT 220 x10^3/uL (163-337); RDW 17.8 % (12.2-16.4)
[2024-11-04 12:34] LABS: CHLORIDE 103 mmol/L (98-107); POTASSIUM 3.4 mmol/L (3.5-5.1); SODIUM 139 mmol/L (136-145)
[2024-11-04 12:38] LABS: ALBUMIN 3.2 g/dl (3.4-5.0); ANION GAP 10 mmol/L (4-13); BLOOD UREA NITROGEN 14.3 mg/dL (7-18); CO2 27 mmol/L (21-32); GLUCOSE,RANDOM 88 mg/dL (74-106)
[2024-11-04 12:39] LABS: AMYLASE 120 U/L (25-115)
[2024-11-04 12:41] LABS: BILIRUBIN,DIRECT 0.1 mg/dL (0.0-0.2); CREATININE 1.1 mg/dL (0.55-1.3); SGOT/AST 9 U/L (15-37); SGPT/ALT 8 U/L (13-61)
[2024-11-04 12:42] LABS: BILIRUBIN,TOTAL 0.4 mg/dL (0.2-1)
[2024-11-04 12:44] LABS: ALK PHOS 91 U/L (45-117)
[2024-11-04] MEDS: SODIUM CHLORIDE 250 ML IV ONE (13:00)
[2024-11-04] MEDS: FOSAPREPITANT DIMEGLUMINE 150 MG in SODIUM CHLORIDE 145 ML IVPB ONE (13:00)
[2024-11-04] MEDS: DEXAMETHASONE SODIUM PHOSPHATE 10 MG in SODIUM CHLORIDE 50 ML IVPB ONE (13:40)
[2024-11-04] MEDS: SODIUM CHLORIDE IV ONE (14:06)
[2024-11-04] MEDS: PEMBROLIZUMAB IV ONE (14:06)
[2024-11-04] MEDS: DEXTROSE 5% IVPB ONE (14:45)
[2024-11-04] MEDS: LEUCOVORIN IVPB ONE (14:45)
[2024-11-04] MEDS: WATER IVPB ONE (14:45)
[2024-11-04] MEDS: PALONOSETRON HCL 0.25 MG/5 ML VIAL IVPUSH ONE (14:51)
[2024-11-04] MEDS: FLUOROURACIL CP ONE (16:07)
[2024-11-04] MEDS: SODIUM CHLORIDE CP ONE (16:07)
[2024-11-04] MEDS: FLUOROURACIL 1,000 MG/20 ML VIAL IVPUSH ONE (16:07)
[2024-11-04 17:49] VITALS: BP 130/80; PULSE 84; RESP 20; TEMP 97.5
== END 2024-11-04 16:20 | disposition home or self-care (01) ==
LOC: JONCCHEMO 10:50
PROVIDERS: ATTEND Internal Medicine Hematology & Oncology
DX: Z51.11 Encounter for antineoplastic chemotherapy (principal); C15.5 Malignant neoplasm of lower third of esophagus; C78.89 Secondary malignant neoplasm of other digestive organs
CPT/HCPCS: 36415; 80048; 80076; 82150; 83690; 84439; 84443; 85025; 96367; 96375; 96411; 96413; G0498; J1453; J9271

== ENCOUNTER 2024-11-18 11:29 | Day surgery (SDC) | payer OTHER ==
[2024-11-18 11:54] LABS: ABSOLUTE IMMATURE GRANULOCYTES 0.05 x10^3/uL (0.0-0.031); BASOPHILS # 0.05 x10^3/uL (0.01-0.08); EOSINOPHIL % 3.5 % (0.8-7.0); EOSINOPHILS # 0.17 x10^3/uL (0.04-0.54); HEMATOCRIT 27.1 % (40.1-51.0); MCHC 33.2 g/dl (32.3-36.5); MEAN CELL VOLUME 91.6 fl (79.0-92.2); MEAN PLT VOLUME 9.8 fl (9.4-12.4); MONOCYTE # 0.76 x10^3/uL (0.30-0.82); MONOCYTE % 15.9 % (5.3-12.2); PLATELET COUNT 226 x10^3/uL (163-337); RDW 17.9 % (12.2-16.4)
[2024-11-18 12:02] LABS: CHLORIDE 106 mmol/L (98-107); POTASSIUM 3.7 mmol/L (3.5-5.1); SODIUM 138 mmol/L (136-145)
[2024-11-18 12:06] LABS: ALBUMIN 3.2 g/dl (3.4-5.0); CALCIUM 8.4 mg/dL (8.5-10.1)
[2024-11-18 12:07] LABS: ANION GAP 8 mmol/L (4-13); BLOOD UREA NITROGEN 14.8 mg/dL (7-18); CO2 25 mmol/L (21-32); GLUCOSE,RANDOM 94 mg/dL (74-106)
[2024-11-18 12:08] LABS: AMYLASE 120 U/L (25-115); SGPT/ALT 13 U/L (13-61)
[2024-11-18 12:09] LABS: BILIRUBIN,DIRECT 0.2 mg/dL (0.0-0.2); CREATININE 1.1 mg/dL (0.55-1.3); SGOT/AST 12 U/L (15-37)
[2024-11-18 12:11] LABS: BILIRUBIN,TOTAL 0.6 mg/dL (0.2-1)
[2024-11-18 12:12] LABS: ALK PHOS 88 U/L (45-117)
[2024-11-18] MEDS: SODIUM CHLORIDE 250 ML IV ONE (12:24)
[2024-11-18] MEDS: FOSAPREPITANT DIMEGLUMINE 150 MG in SODIUM CHLORIDE 145 ML IVPB ONE (12:24)
[2024-11-18] MEDS: DEXAMETHASONE SODIUM PHOSPHATE 10 MG in SODIUM CHLORIDE 50 ML IVPB ONE (13:10)
[2024-11-18] MEDS: PALONOSETRON HCL 0.25 MG/5 ML VIAL IVPUSH ONE (13:11)
[2024-11-18] MEDS: PEMBROLIZUMAB IV ONE (14:40)
[2024-11-18] MEDS: SODIUM CHLORIDE IV ONE (14:40)
[2024-11-18] MEDS: DEXTROSE 5% IVPB ONE (15:20)
[2024-11-18] MEDS: WATER IVPB ONE (15:20)
[2024-11-18] MEDS: LEUCOVORIN IVPB ONE (15:20)
[2024-11-18] MEDS: FLUOROURACIL CP ONE (17:20)
[2024-11-18] MEDS: SODIUM CHLORIDE CP ONE (17:20)
[2024-11-18] MEDS: FLUOROURACIL 1,000 MG/20 ML VIAL IVPUSH ONE (17:20)
[2024-11-18 17:36] VITALS: BP 127/85; PULSE 88; RESP 20
[2024-11-18 17:37] VITALS: TEMP 97.9
[2024-11-18] MEDS ORDERED: PORTA CATH FLUSH 10 ML IVPUSH PRN (17:45)
== END 2024-11-18 17:40 | disposition home or self-care (01) ==
LOC: JONCCHEMO 11:29
PROVIDERS: ATTEND Internal Medicine Hematology & Oncology
DX: Z51.11 Encounter for antineoplastic chemotherapy (principal); C15.5 Malignant neoplasm of lower third of esophagus; C78.89 Secondary malignant neoplasm of other digestive organs
CPT/HCPCS: 36415; 80048; 80076; 82150; 83690; 84439; 84443; 85025; 96366; 96367; 96375; 96411; 96413; G0498; J1453; J9271

== ENCOUNTER 2024-12-02 10:45 | Day surgery (SDC) | payer OTHER ==
[2024-12-02] MEDS: SODIUM CHLORIDE 250 ML IV ONE (11:20)
[2024-12-02 11:29] LABS: ABSOLUTE IMMATURE GRANULOCYTES 0.04 x10^3/uL (0.0-0.031); BASOPHILS # 0.05 x10^3/uL (0.01-0.08); EOSINOPHIL % 3.5 % (0.8-7.0); EOSINOPHILS # 0.17 x10^3/uL (0.04-0.54); HEMATOCRIT 27.3 % (40.1-51.0); HEMOGLOBIN 9.2 g/dL (13.7-17.5); MCHC 33.7 g/dl (32.3-36.5); MEAN CELL VOLUME 90.7 fl (79.0-92.2); MEAN PLT VOLUME 9.9 fl (9.4-12.4); MONOCYTE # 0.53 x10^3/uL (0.30-0.82); MONOCYTE % 10.8 % (5.3-12.2); PLATELET COUNT 224 x10^3/uL (163-337); RDW 16.7 % (12.2-16.4)
[2024-12-02 11:48] LABS: CHLORIDE 103 mmol/L (98-107); POTASSIUM 3.2 mmol/L (3.5-5.1); SODIUM 138 mmol/L (136-145)
[2024-12-02 11:50] LABS: CALCIUM 8.9 mg/dL (8.5-10.1)
[2024-12-02 11:51] LABS: ALBUMIN 3.2 g/dl (3.4-5.0); ANION GAP 10 mmol/L (4-13); BLOOD UREA NITROGEN 17.8 mg/dL (7-18); CO2 25 mmol/L (21-32); GLUCOSE,RANDOM 117 mg/dL (74-106)
[2024-12-02 11:52] LABS: AMYLASE 145 U/L (25-115)
[2024-12-02 11:53] LABS: BILIRUBIN,DIRECT 0.2 mg/dL (0.0-0.2)
[2024-12-02 11:54] LABS: SGOT/AST 11 U/L (15-37)
[2024-12-02 11:55] LABS: BILIRUBIN,TOTAL 0.7 mg/dL (0.2-1); TOT PROT 6.1 g/dl (6.4-8.2)
[2024-12-02 11:56] LABS: ALK PHOS 89 U/L (45-117)
[2024-12-02 12:01] LABS: SGPT/ALT 13 U/L (13-61)
[2024-12-02] MEDS: FOSAPREPITANT DIMEGLUMINE 150 MG in SODIUM CHLORIDE 145 ML IVPB ONE (12:20)
[2024-12-02] MEDS: PALONOSETRON HCL 0.25 MG/5 ML VIAL IVPUSH ONE (12:24)
[2024-12-02] MEDS: DEXAMETHASONE SODIUM PHOSPHATE 10 MG in SODIUM CHLORIDE 50 ML IVPB ONE (12:53)
[2024-12-02] MEDS: PEMBROLIZUMAB IV ONE (13:22)
[2024-12-02] MEDS: SODIUM CHLORIDE IV ONE (13:22)
[2024-12-02 13:28] VITALS: RESP 20; TEMP 98
[2024-12-02] MEDS: DEXTROSE 5% IVPB ONE (13:52)
[2024-12-02] MEDS: LEUCOVORIN IVPB ONE (13:52)
[2024-12-02] MEDS: WATER IVPB ONE (13:52)
[2024-12-02] MEDS: POTASSIUM CHLORIDE TABS 20 MEQ TABLET.ER (FP) PO ONE (15:15)
[2024-12-02] MEDS: FLUOROURACIL 1,000 MG/20 ML VIAL IVPUSH ONE (16:00)
[2024-12-02] MEDS: SODIUM CHLORIDE CP ONE (16:00)
[2024-12-02] MEDS: FLUOROURACIL CP ONE (16:00)
[2024-12-02 16:22] VITALS: BP 128/91; PULSE 84
== END 2024-12-02 16:36 | disposition home or self-care (01) ==
LOC: JONCCHEMO 10:45
PROVIDERS: ATTEND Internal Medicine Hematology & Oncology
DX: Z51.11 Encounter for antineoplastic chemotherapy (principal)
CPT/HCPCS: 36415; 80048; 80076; 82150; 83690; 84439; 84443; 85025; 96366; 96367; 96368; 96375; 96411; 96413; G0498; J1453; J9271

== ENCOUNTER 2025-01-25 11:33 | Day surgery (SDC) | payer OTHER ==
[~2025-01-25 11:33] MED LIST changes: -FLUOROURACIL 3,500 MG in SODIUM CHLORIDE 22 ML CP ONE; +FLUOROURACIL CP ONE; +FOSAPREPITANT DIMEGLUMINE 150 MG in SODIUM CHLORIDE 145 ML IVPB ONE; +PEMBROLIZUMAB IV ONE; +SODIUM CHLORIDE CP ONE; +SODIUM CHLORIDE IV ONE
[2025-01-25] MEDS: DEXTROSE 5%-0.45% SALINE 1,000 ML IV ONE (12:30)
[2025-01-25 15:01] LABS: ABSOLUTE IMMATURE GRANULOCYTES 0.06 x10^3/uL (0.0-0.031); BASOPHILS # 0.05 x10^3/uL (0.01-0.08); EOSINOPHIL % 2.3 % (0.8-7.0); HEMATOCRIT 21.2 % (40.1-51.0); HEMOGLOBIN 6.6 g/dL (13.7-17.5); MCHC 31.1 g/dl (32.3-36.5); MEAN CELL VOLUME 90.6 fl (79.0-92.2); MEAN PLT VOLUME 10.1 fl (9.4-12.4); MONOCYTE # 0.84 x10^3/uL (0.30-0.82); MONOCYTE % 9.8 % (5.3-12.2); PLATELET COUNT 333 x10^3/uL (163-337); RDW 16.3 % (12.2-16.4)
[2025-01-25] MEDS: PORTA CATH FLUSH 10 ML IVPUSH PRN (15:30)
[2025-01-25 19:13] VITALS: BP 90/65; PULSE 82; RESP 20; TEMP 98.1
== END 2025-01-25 15:35 | disposition home or self-care (01) ==
LOC: JONCCHEMO 11:33 → J7W 13:27 → JONCCHEMO 15:35
PROVIDERS: ATTEND Internal Medicine Hematology & Oncology
PROC: 3E0437Z Introduction of Electrolytic and Water Balance Substance into Central Vein, Percutaneous Approach (ICD-10-PCS; principal; 2025-01-25)
DX: C15.9 Malignant neoplasm of esophagus, unspecified (principal); C77.2 Secondary and unspecified malignant neoplasm of intra-abdominal lymph nodes; Z76.89 Persons encountering health services in other specified circumstances
CPT/HCPCS: 36415; 85025; 86850; 86900; 86901

== ENCOUNTER 2025-02-01 12:20 | Day surgery (SDC) | payer OTHER ==
[2025-02-01 12:57] LABS: ABSOLUTE IMMATURE GRANULOCYTES 0.05 x10^3/uL (0.0-0.031); BASOPHILS # 0.05 x10^3/uL (0.01-0.08); EOSINOPHIL % 2.7 % (0.8-7.0); EOSINOPHILS # 0.24 x10^3/uL (0.04-0.54); HEMATOCRIT 27.3 % (40.1-51.0); HEMOGLOBIN 8.5 g/dL (13.7-17.5); MCHC 31.1 g/dl (32.3-36.5); MEAN CELL VOLUME 88.1 fl (79.0-92.2); MEAN PLT VOLUME 9.8 fl (9.4-12.4); MONOCYTE # 0.87 x10^3/uL (0.30-0.82); MONOCYTE % 9.7 % (5.3-12.2); PLATELET COUNT 386 x10^3/uL (163-337); RDW 15.4 % (12.2-16.4)
[2025-02-01 13:49] LABS: POTASSIUM 3.6 mmol/L (3.5-5.1); SODIUM 138 mmol/L (136-145)
[2025-02-01 13:57] LABS: CHLORIDE 103 mmol/L (98-107)
[2025-02-01 13:58] LABS: CALCIUM 9.3 mg/dL (8.5-10.1)
[2025-02-01 13:59] LABS: ALBUMIN 2.9 g/dl (3.4-5.0); ANION GAP 10 mmol/L (4-13); CO2 25 mmol/L (21-32); GLUCOSE,RANDOM 99 mg/dL (74-106)
[2025-02-01 14:02] LABS: BILIRUBIN,DIRECT 0.2 mg/dL (0.0-0.2); SGOT/AST 9 U/L (15-37); SGPT/ALT 11 U/L (13-61)
[2025-02-01 14:04] LABS: BILIRUBIN,TOTAL 0.6 mg/dL (0.2-1); TOT PROT 6.1 g/dl (6.4-8.2)
[2025-02-01 14:05] LABS: ALK PHOS 90 U/L (45-117)
[2025-02-01] MEDS: SODIUM CHLORIDE 250 ML IV ONE (14:35)
[2025-02-01] MEDS: DEXAMETHASONE SODIUM PHOSPHATE 10 MG in SODIUM CHLORIDE 50 ML IVPB ONE (15:03)
[2025-02-01] MEDS: FOSAPREPITANT DIMEGLUMINE 150 MG in SODIUM CHLORIDE 145 ML IVPB ONE (15:25)
[2025-02-01] MEDS: PALONOSETRON HCL 0.25 MG/5 ML VIAL IVPUSH ONE (15:27)
[2025-02-01] MEDS: SODIUM CHLORIDE IV ONE (16:09)
[2025-02-01] MEDS: PEMBROLIZUMAB IV ONE (16:09)
[2025-02-01] MEDS: LEUCOVORIN IVPB ONE (16:43)
[2025-02-01] MEDS: DEXTROSE 5% IVPB ONE (16:43)
[2025-02-01] MEDS: WATER IVPB ONE (16:43)
[2025-02-01 18:05] VITALS: RESP 20; TEMP 98.3
[2025-02-01] MEDS ORDERED: PORTA CATH FLUSH 10 ML IVPUSH PRN (18:14)
[2025-02-01] MEDS: FLUOROURACIL 1,000 MG/20 ML VIAL IVPUSH ONE (18:18)
[2025-02-01] MEDS: SODIUM CHLORIDE CP ONE (18:20)
[2025-02-01] MEDS: FLUOROURACIL CP ONE (18:20)
[2025-02-01 18:34] VITALS: BP 97/65; PULSE 84
== END 2025-02-01 18:42 | disposition home or self-care (01) ==
LOC: J7W 12:20 → JONCCHEMO 12:20
PROVIDERS: ATTEND Internal Medicine Hematology & Oncology
DX: Z51.11 Encounter for antineoplastic chemotherapy (principal); C15.9 Malignant neoplasm of esophagus, unspecified; C77.2 Secondary and unspecified malignant neoplasm of intra-abdominal lymph nodes
CPT/HCPCS: 36415; 80048; 80076; 82150; 83690; 84439; 84443; 85025; 96366; 96367; 96375; 96411; 96413; G0498; J1453; J9271

== ENCOUNTER 2025-02-23 09:37 | Day surgery (SDC) | payer OTHER ==
[2025-02-23 10:37] LABS: ABSOLUTE IMMATURE GRANULOCYTES 0.31 x10^3/uL (0.0-0.031); BASOPHILS # 0.04 x10^3/uL (0.01-0.08); EOSINOPHIL % 1.7 % (0.8-7.0); EOSINOPHILS # 0.16 x10^3/uL (0.04-0.54); MCHC 30.9 g/dl (32.3-36.5); MEAN CELL VOLUME 85.3 fl (79.0-92.2); MEAN PLT VOLUME 10.0 fl (9.4-12.4); MONOCYTE # 0.86 x10^3/uL (0.30-0.82); MONOCYTE % 9.0 % (5.3-12.2); RDW 16.1 % (12.2-16.4)
[2025-02-23] MEDS: FOSAPREPITANT DIMEGLUMINE 150 MG in SODIUM CHLORIDE 145 ML IVPB ONE (12:44)
[2025-02-23] MEDS: SODIUM CHLORIDE 250 ML IV ONE (12:45)
[2025-02-23] MEDS: DEXAMETHASONE SODIUM PHOSPHATE 10 MG in SODIUM CHLORIDE 50 ML IVPB ONE (13:16)
[2025-02-23] MEDS: PALONOSETRON HCL 0.25 MG/5 ML VIAL IVPUSH ONE (13:17)
[2025-02-23] MEDS: SODIUM CHLORIDE IV ONE (13:35)
[2025-02-23] MEDS: PEMBROLIZUMAB IV ONE (13:35)
[2025-02-23] MEDS: DEXTROSE 5% IVPB ONE (14:09)
[2025-02-23] MEDS: LEUCOVORIN IVPB ONE (14:09)
[2025-02-23] MEDS: WATER IVPB ONE (14:09)
[2025-02-23] MEDS: FLUOROURACIL CP ONE (15:53)
[2025-02-23] MEDS: FLUOROURACIL 1,000 MG/20 ML VIAL IVPUSH ONE (15:53)
[2025-02-23] MEDS: SODIUM CHLORIDE CP ONE (15:53)
[2025-02-23 18:06] VITALS: BP 107/70; PULSE 80; RESP 20; TEMP 98.1
== END 2025-02-23 16:05 | disposition home or self-care (01) ==
LOC: JONCCHEMO 09:37 → J7W 09:51 → JONCCHEMO 16:05
PROVIDERS: ATTEND Internal Medicine Hematology & Oncology
DX: Z51.11 Encounter for antineoplastic chemotherapy (principal); C15.9 Malignant neoplasm of esophagus, unspecified
CPT/HCPCS: 36415; 85025; G0498; J1453; J9271

== ENCOUNTER 2025-03-23 09:44 | Day surgery (SDC) | payer OTHER ==
[~2025-03-23 09:44] MED LIST changes: -DEXTROSE 5% IVPB ONE; -FLUOROURACIL 1,000 MG/20 ML VIAL IVPUSH ONE; -FLUOROURACIL CP ONE; -LEUCOVORIN IVPB ONE; -PEMBROLIZUMAB IV ONE; -SODIUM CHLORIDE 250 ML IV ONE; -SODIUM CHLORIDE CP ONE; -SODIUM CHLORIDE IV ONE; -WATER IVPB ONE
[2025-03-23] MEDS ORDERED: PEMBROLIZUMAB IV ONE (10:00)
[2025-03-23] MEDS ORDERED: SODIUM CHLORIDE IV ONE (10:00)
[2025-03-23] MEDS: SODIUM CHLORIDE 250 ML IV ONE (10:29)
[2025-03-23] MEDS ORDERED: DEXTROSE 5% IVPB ONE (10:30)
[2025-03-23] MEDS ORDERED: LEUCOVORIN IVPB ONE (10:30)
[2025-03-23] MEDS ORDERED: WATER IVPB ONE (10:30)
[2025-03-23 10:50] LABS: GLUCOSE,RANDOM 99 mg/dL (74-106); TOT PROT 5.2 g/dl (6.4-8.2)
[2025-03-23 10:51] LABS: CO2 23 mmol/L (21-32)
[2025-03-23 10:53] LABS: ALK PHOS 92 U/L (40-150)
[2025-03-23 10:55] LABS: ABSOLUTE IMMATURE GRANULOCYTES 0.09 x10^3/uL (0.0-0.031); BASOPHILS # 0.02 x10^3/uL (0.01-0.08); EOSINOPHIL % 0.9 % (0.8-7.0); EOSINOPHILS # 0.09 x10^3/uL (0.04-0.54); MCHC 28.4 g/dl (32.3-36.5); MEAN CELL VOLUME 87.0 fl (79.0-92.2); MEAN PLT VOLUME 10.6 fl (9.4-12.4); MONOCYTE # 0.83 x10^3/uL (0.30-0.82); MONOCYTE % 8.5 % (5.3-12.2); RDW 18.6 % (12.2-16.4)
[2025-03-23 10:56] LABS: CREATININE 1.02 mg/dL (0.55-1.3); SGOT/AST 13 U/L (5-34); SGPT/ALT 7 U/L (0-55)
[2025-03-23] MEDS: PORTA CATH FLUSH 10 ML IVPUSH PRN (11:50)
[2025-03-23] MEDS ORDERED: FLUOROURACIL 1,000 MG/20 ML VIAL IVPUSH ONE (12:30)
[2025-03-23] MEDS ORDERED: SODIUM CHLORIDE CP ONE (12:45)
[2025-03-23] MEDS ORDERED: FLUOROURACIL CP ONE (12:45)
[2025-03-23 13:32] VITALS: BP 92/63; PULSE 88; RESP 20; TEMP 97.7
== END 2025-03-23 12:00 | disposition home or self-care (01) ==
LOC: JONCCHEMO 09:44
PROVIDERS: ATTEND Internal Medicine Hematology & Oncology
PROC: 3E0437Z Introduction of Electrolytic and Water Balance Substance into Central Vein, Percutaneous Approach (ICD-10-PCS; principal; 2025-03-23)
DX: C15.9 Malignant neoplasm of esophagus, unspecified (principal)
CPT/HCPCS: 36415; 80048; 80076; 82150; 83690; 84439; 84443; 85025; 96360

== ENCOUNTER 2025-04-19 11:08 | Observation (INO) | payer OTHER ==
[2025-04-19 11:49] VITALS: BMI 17.9
[2025-04-19 12:32] LABS: ABSOLUTE IMMATURE GRANULOCYTES 0.11 x10^3/uL (0.0-0.031); BASOPHILS # 0.04 x10^3/uL (0.01-0.08); EOSINOPHIL % 0.6 % (0.8-7.0); EOSINOPHILS # 0.06 x10^3/uL (0.04-0.54); MCHC 29.3 g/dl (32.3-36.5); MEAN CELL VOLUME 97.9 fl (79.0-92.2); MEAN PLT VOLUME 10.0 fl (9.4-12.4); MONOCYTE # 0.81 x10^3/uL (0.30-0.82); MONOCYTE % 8.1 % (5.3-12.2); RDW 20.2 % (12.2-16.4)
[2025-04-19 12:40] LABS: INR 1.13 (0.83-1.09); PROTHROMBIN TIME (PATIENT) 12.4 SEC (9.7-13.0)
[2025-04-19 12:42] LABS: ACTIVATED PTT 28.1 SECONDS (25.2-36.5)
[2025-04-19 12:56] LABS: GLUCOSE,RANDOM 93 mg/dL (74-106)
[2025-04-19 12:57] LABS: TOT PROT 5.0 g/dl (6.4-8.2)
[2025-04-19 12:58] LABS: CO2 24 mmol/L (21-32)
[2025-04-19 13:02] LABS: CREATININE 0.89 mg/dL (0.55-1.3); SGOT/AST 16 U/L (5-34); SGPT/ALT 6 U/L (0-55)
[2025-04-19 13:30] LABS: HCV DIAGNOSTIC IN-HOUSE W/RFLX NON-REACTIVE (NONREACTIVE); HIV INTERPRETATION NEGATIVE (NEGATIVE)
[2025-04-19 13:49] LABS: ALK PHOS 80 U/L (40-150)
[2025-04-19] MEDS ORDERED: KCL 10 MEQ IVPB 10 MEQ/100 ML INFUS.BAG IVPB ONE ×2 (14:00→16:42)
[2025-04-19] MEDS ORDERED: POTASSIUM CHLORIDE ORAL LIQUID 20 MEQ/15 ML ONE (14:00)
[2025-04-19] MEDS: KCL 10 MEQ IVPB 10 MEQ/100 ML INFUS.BAG IVPB SCH ×2 (14:30→19:13)
[2025-04-19] MEDS: POTASSIUM CHLORIDE ORAL LIQUID 20 MEQ/15 ML PO ONE (14:40)
[2025-04-19] MEDS: PANTOPRAZOLE SODIUM 40 MG VIAL IVPUSH SCH (19:02)
[2025-04-19] MEDS: SODIUM CHLORIDE 1,000 ML IV SCH (19:03)
[2025-04-19 21:31] LABS: MCHC 30.2 g/dl (32.3-36.5); MEAN CELL VOLUME 94.9 fl (79.0-92.2); MEAN PLT VOLUME 9.8 fl (9.4-12.4); RDW 22.0 % (12.2-16.4)
[2025-04-19] MEDS: ATORVASTATIN CA 80 MG TABLET (FP) PO SCH (21:52)
[2025-04-20 04:57] LABS: MCHC 31.6 g/dl (32.3-36.5); MEAN CELL VOLUME 91.8 fl (79.0-92.2); MEAN PLT VOLUME 9.8 fl (9.4-12.4); RDW 21.5 % (12.2-16.4)
[2025-04-20 08:14] LABS: ABSOLUTE IMMATURE GRANULOCYTES 0.05 x10^3/uL (0.0-0.031); BASOPHILS # 0.02 x10^3/uL (0.01-0.08); EOSINOPHIL % 1.7 % (0.8-7.0); EOSINOPHILS # 0.12 x10^3/uL (0.04-0.54); MCHC 30.7 g/dl (32.3-36.5); MEAN CELL VOLUME 91.6 fl (79.0-92.2); MEAN PLT VOLUME 9.9 fl (9.4-12.4); MONOCYTE # 0.53 x10^3/uL (0.30-0.82); MONOCYTE % 7.6 % (5.3-12.2); RDW 21.9 % (12.2-16.4)
[2025-04-20 08:57] LABS: GLUCOSE,RANDOM 80 mg/dL (74-106); TOT PROT 4.4 g/dl (6.4-8.2)
[2025-04-20 08:58] LABS: CO2 22 mmol/L (21-32)
[2025-04-20 09:03] LABS: CREATININE 0.70 mg/dL (0.55-1.3); SGOT/AST 14 U/L (5-34)
[2025-04-20 09:05] LABS: ALK PHOS 72 U/L (40-150); SGPT/ALT < 6 U/L (0-55)
[2025-04-20] MEDS: COLCHICINE 0.6 MG TAB PO SCH (09:14)
[2025-04-20] MEDS: EMPAGLIFLOZIN (JARDIANCE) 10 MG TABLET PO SCH (09:14)
[2025-04-20] MEDS ORDERED: PANTOPRAZOLE 40 MG TABLET PO SCH (10:00)
[2025-04-20] MEDS: POTASSIUM CHLORIDE ORAL LIQUID 20 MEQ/15 ML PO ONE (10:35)
[2025-04-20] MEDS: ASPIRIN COATED 81 MG TABLET.EC PO SCH (10:36)
[2025-04-20] MEDS: MAGNESIUM SULF 50% (8.12 MEQ/2 ML-1 GM VIAL) IVPB ONE (10:36)
[2025-04-20] MEDS: NAPH,MB-DB/K PH,MBDB POWDER PACKET PO ONE (10:36)
[2025-04-20] MEDS: THIAMINE 100 MG TABLET PO SCH (12:32)
[2025-04-20] MEDS: CLOPIDOGREL BISULFATE 75 MG TABLET (FP) PO SCH (12:32)
[2025-04-20 14:29] LABS: MCHC 31.1 g/dl (32.3-36.5); MEAN CELL VOLUME 90.6 fl (79.0-92.2); MEAN PLT VOLUME 9.9 fl (9.4-12.4); RDW 21.1 % (12.2-16.4)
[2025-04-20 20:28] VITALS: BP 94/71; PULSE 84; RESP 15; TEMP 98.6
[2025-04-20] MEDS ORDERED: PANTOPRAZOLE SODIUM 40 MG VIAL IVPUSH SCH (22:00)
== END 2025-04-20 20:15 | disposition short-term general hospital (02) ==
LOC: JER 11:08 → JERBED 16:26 → J4S 18:21
PROVIDERS: ATTEND Student in an Organized Health Care Education/Training Program
PROC: 3E033GC Introduction of Other Therapeutic Substance into Peripheral Vein, Percutaneous Approach (ICD-10-PCS; principal; 2025-04-19)
PROC: 3E0337Z Introduction of Electrolytic and Water Balance Substance into Peripheral Vein, Percutaneous Approach (ICD-10-PCS; 2025-04-19)
DX: D64.9 Anemia, unspecified (principal); E87.6 Hypokalemia; C15.9 Malignant neoplasm of esophagus, unspecified; C79.89 Secondary malignant neoplasm of other specified sites
CPT/HCPCS: 36415; 36430; 71045-TC-FY; 80053; 82272; 82962; 83735; 84100; 85025; 85027; 85610; 85730; 86803; 86922; 87389; 87635; 93005; 93010; 96361; 96365; 96367; 96375; 99285-25; G0378; P9058